=== PATIENT | male | born 1945 | race African-American/Black ===

== ENCOUNTER 2022-11-18 10:51 | Day surgery (SDC) | payer OTHER | END 2022-11-18 11:26 | LOC: FASU-ENDO 10:51 | PROVIDERS: ATTEND Internal Medicine Gastroenterology | PROC: 0DJD8ZZ Inspection of Lower Intestinal Tract, Via Natural or Artificial Opening Endoscopic (ICD-10-PCS; principal; 2022-11-18) | DX: Z53.8 Procedure and treatment not carried out for other reasons (principal); Z12.11 Encounter for screening for malignant neoplasm of colon ==

== ENCOUNTER 2022-11-27 11:40 | Inpatient (IN) | payer OTHER ==
[2022-11-27] MEDS ORDERED: HALOPERIDOL LACTATE 5 MG/ML IM ONE ×2 (12:30→12:33)
[2022-11-27 14:45] LABS: BASO % 0.5 % (0-2.0); EOS % 0.9 % (0-4.5); HEMATOCRIT 44.3 % (35.4-49); HEMOGLOBIN 14.9 GM/dL (11.7-16.9); LYMPH % 19.4 % (8-40); MCH 30.1 pg (25.7-33.7); MCHC 33.6 g/dl (32.0-35.9); MEAN CELL VOLUME 89.6 fl (80-96); NEUT % 70.2 % (42.8-82.8); PLATELET COUNT 243 10^3/uL (134-434); RBC 4.94 M/mm3 (4.00-5.60); RDW 14.3 % (11.9-15.9); WHITE BLOOD COUNT 5.7 K/mm3 (4.0-10.0)
[2022-11-27 14:50] LABS: INR 1.28 (0.83-1.09); PROTHROMBIN TIME (PATIENT) 14.8 SEC (9.7-13.0)
[2022-11-27 14:53] LABS: ACTIVATED PTT 37.7 SECONDS (25.2-36.5)
[2022-11-27 15:04] LABS: POTASSIUM 4.1 mmol/L (3.5-5.1)
[2022-11-27 15:06] LABS: CALCIUM 9.5 mg/dL (8.5-10.1)
[2022-11-27 15:07] LABS: BLOOD UREA NITROGEN 16.6 mg/dL (7-18)
[2022-11-27 15:09] LABS: CREATININE 0.7 mg/dL (0.55-1.3)
[2022-11-27 15:11] LABS: BILIRUBIN,TOTAL 0.6 mg/dL (0.2-1); TOT PROT 7.3 g/dl (6.4-8.2)
[2022-11-27] MEDS ORDERED: ACETAMINOPHEN 325 MG TABLET (FP) PO PRN (16:19)
[2022-11-27] MEDS: APIXABAN 5 MG TABLET PO SCH (22:06)
[2022-11-27] MEDS: POLYETHYLENE GLYCOL (HEALTHYLAX) 3350 17 GM PACKET PO SCH (22:06)
[2022-11-27] MEDS: FUROSEMIDE 20 MG TABLET (FP) PO SCH (22:06)
[2022-11-27] MEDS: MELATONIN 5 MG TABLETS PO SCH (22:06)
[2022-11-28 02:32] LABS: EPI CELLS 7 /uL (0-25.1); HYALINE CASTS 1 /uL (0-3.1); URINE APPEARANCE CLOUDY; URINE BACTERIA 319 /uL (0-1359); URINE BILIRUBIN NEGATIVE (NEGATIVE); URINE COLOR YELLOW; URINE GLUCOSE (UA) NEGATIVE (NEGATIVE); URINE KETONE NEGATIVE (NEGATIVE); URINE LEUK ESTERASE NEGATIVE (NEGATIVE); URINE NITRITE NEGATIVE (NEGATIVE); URINE PROTEIN NEGATIVE (NEGATIVE); URINE RBC 2067 /uL (0-23.9); URINE WBC 8 /uL (0-25.8)
[2022-11-28 08:25] LABS: BASO % 0.5 % (0-2.0); EOS % 1.6 % (0-4.5); HEMOGLOBIN 15.4 GM/dL (11.7-16.9); LYMPH % 25.2 % (8-40); MCH 30.8 pg (25.7-33.7); MCHC 33.4 g/dl (32.0-35.9); MEAN PLT VOLUME 8.7 fl (7.5-11.1); MONO % 11.3 % (3.8-10.2); NEUT % 61.4 % (42.8-82.8); PLATELET COUNT 234 10^3/uL (134-434); RDW 14.1 % (11.9-15.9); WHITE BLOOD COUNT 5.9 K/mm3 (4.0-10.0)
[2022-11-28 09:15] LABS: POTASSIUM 3.8 mmol/L (3.5-5.1)
[2022-11-28 09:17] LABS: CALCIUM 9.5 mg/dL (8.5-10.1)
[2022-11-28 09:18] LABS: ALBUMIN 3.1 g/dl (3.4-5.0)
[2022-11-28] MEDS: APIXABAN 5 MG TABLET PO SCH ×2 (09:20→22:11)
[2022-11-28] MEDS: POLYETHYLENE GLYCOL (HEALTHYLAX) 3350 17 GM PACKET PO SCH ×2 (09:20→22:11)
[2022-11-28 09:23] LABS: BILIRUBIN,TOTAL 1.1 mg/dL (0.2-1); CREATININE 0.6 mg/dL (0.55-1.3); TOT PROT 7.2 g/dl (6.4-8.2)
[2022-11-28] MEDS ORDERED: amLODIPine BESYLATE 10 MG TABLET (FP) PO SCH (10:00)
[2022-11-28] MEDS ORDERED: levETIRAcetam 500 MG/5 ML INJECTION VIAL IVPB ONE (18:10)
[2022-11-28] MEDS: MELATONIN 5 MG TABLETS PO SCH (22:11)
[2022-11-29] MEDS: APIXABAN 5 MG TABLET PO SCH ×2 (09:10→22:08)
[2022-11-29] MEDS: levETIRAcetam 500 MG/5 ML ORAL SOLUTION (UNIT-DOSE CUPS) PO SCH ×2 (09:10→22:08)
[2022-11-29] MEDS: POLYETHYLENE GLYCOL (HEALTHYLAX) 3350 17 GM PACKET PO SCH ×2 (09:10→22:09)
[2022-11-29 13:44] VITALS: BMI 23.3
[2022-11-29] MEDS: AMINO ACIDS/PROTEIN HYDROLYS 30 ML LIQUID.PKT PO SCH (17:21)
[2022-11-29] MEDS: FUROSEMIDE 20 MG TABLET (FP) PO SCH (17:21)
[2022-11-29] MEDS: MELATONIN 5 MG TABLETS PO SCH (22:08)
[2022-11-30 07:49] LABS: HEMATOCRIT 47.1 % (35.4-49); HEMOGLOBIN 15.7 GM/dL (11.7-16.9); MCH 30.5 pg (25.7-33.7); MCHC 33.4 g/dl (32.0-35.9); MEAN CELL VOLUME 91.5 fl (80-96); MEAN PLT VOLUME 9.1 fl (7.5-11.1); PLATELET COUNT 250 10^3/uL (134-434); RBC 5.15 M/mm3 (4.00-5.60); RDW 14.4 % (11.9-15.9); WHITE BLOOD COUNT 5.7 K/mm3 (4.0-10.0)
[2022-11-30 08:09] LABS: POTASSIUM 3.8 mmol/L (3.5-5.1)
[2022-11-30 08:13] LABS: CALCIUM 9.2 mg/dL (8.5-10.1)
[2022-11-30 08:14] LABS: BLOOD UREA NITROGEN 15.1 mg/dL (7-18); MAGNESIUM 2.3 mg/dL (1.8-2.4)
[2022-11-30 08:17] LABS: CREATININE 0.6 mg/dL (0.55-1.3)
[2022-11-30] MEDS: AMINO ACIDS/PROTEIN HYDROLYS 30 ML LIQUID.PKT PO SCH ×2 (10:22→17:29)
[2022-11-30] MEDS: APIXABAN 5 MG TABLET PO SCH ×2 (10:22→21:22)
[2022-11-30] MEDS: POLYETHYLENE GLYCOL (HEALTHYLAX) 3350 17 GM PACKET PO SCH ×2 (10:23→21:23)
[2022-11-30] MEDS: levETIRAcetam 500 MG/5 ML ORAL SOLUTION (UNIT-DOSE CUPS) PO SCH ×2 (10:23→21:23)
[2022-11-30] MEDS: MELATONIN 5 MG TABLETS PO SCH (21:23)
[2022-11-30 21:49] LABS: EPI CELLS 7 /uL (0-25.1); HYALINE CASTS 4 /uL (0-3.1); PH,URINE 5.5 (5.0-8.0); URINE APPEARANCE CLEAR; URINE BACTERIA 61 /uL (0-1359); URINE BILIRUBIN NEGATIVE (NEGATIVE); URINE COLOR DK YELLOW; URINE GLUCOSE (UA) NEGATIVE (NEGATIVE); URINE KETONE TRACE (NEGATIVE); URINE LEUK ESTERASE NEGATIVE (NEGATIVE); URINE NITRITE NEGATIVE (NEGATIVE); URINE PROTEIN TRACE (NEGATIVE); URINE RBC 273 /uL (0-23.9); URINE WBC 14 /uL (0-25.8)
[2022-12-01 08:17] LABS: HEMOGLOBIN 15.9 GM/dL (11.7-16.9); MCH 30.3 pg (25.7-33.7); MCHC 33.1 g/dl (32.0-35.9); MEAN CELL VOLUME 91.5 fl (80-96); MEAN PLT VOLUME 9.6 fl (7.5-11.1); PLATELET COUNT 229 10^3/uL (134-434); RBC 5.24 M/mm3 (4.00-5.60); RDW 14.2 % (11.9-15.9)
[2022-12-01 08:36] LABS: POTASSIUM 4.2 mmol/L (3.5-5.1)
[2022-12-01 08:39] LABS: CALCIUM 9.5 mg/dL (8.5-10.1)
[2022-12-01 08:40] LABS: ALBUMIN 3.2 g/dl (3.4-5.0); BLOOD UREA NITROGEN 17.8 mg/dL (7-18); MAGNESIUM 2.3 mg/dL (1.8-2.4)
[2022-12-01 08:43] LABS: CREATININE 0.6 mg/dL (0.55-1.3); PHOSPHOROUS 3.2 mg/dL (2.5-4.9)
[2022-12-01 08:44] LABS: TOT PROT 7.4 g/dl (6.4-8.2)
[2022-12-01] MEDS: levETIRAcetam 500 MG/5 ML ORAL SOLUTION (UNIT-DOSE CUPS) PO SCH ×2 (09:39→21:05)
[2022-12-01] MEDS: APIXABAN 5 MG TABLET PO SCH ×2 (09:39→21:04)
[2022-12-01] MEDS: AMINO ACIDS/PROTEIN HYDROLYS 30 ML LIQUID.PKT PO SCH ×2 (09:40→16:54)
[2022-12-01] MEDS: POLYETHYLENE GLYCOL (HEALTHYLAX) 3350 17 GM PACKET PO SCH ×2 (09:40→21:05)
[2022-12-01] MEDS: FUROSEMIDE 20 MG TABLET (FP) PO SCH (16:54)
[2022-12-01] MEDS: MELATONIN 5 MG TABLETS PO SCH (21:05)
[2022-12-02] MEDS: AMINO ACIDS/PROTEIN HYDROLYS 30 ML LIQUID.PKT PO SCH ×2 (10:08→16:51)
[2022-12-02] MEDS: levETIRAcetam 500 MG/5 ML ORAL SOLUTION (UNIT-DOSE CUPS) PO SCH (10:09)
[2022-12-02] MEDS: APIXABAN 5 MG TABLET PO SCH (10:09)
[2022-12-02] MEDS: POLYETHYLENE GLYCOL (HEALTHYLAX) 3350 17 GM PACKET PO SCH (10:09)
[2022-12-02 15:31] VITALS: RESP 18; TEMP 98.2
[2022-12-02] MEDS ORDERED: APIXABAN 2.5 MG TABLET PO SCH (16:38)
[2022-12-02 19:01] VITALS: BP 114/68; PULSE 65
== END 2022-12-02 19:53 | DRG 53 ==
LOC: JER 11:40 → JERBED 15:47 → J4W 19:27 → OBSVTOIN 11-29 17:51
PROVIDERS: ADMIT Internal Medicine; ATTEND Internal Medicine
DX: R56.9 Unspecified convulsions (principal); G62.9 Polyneuropathy, unspecified; F03.90 Unspecified dementia, unspecified severity, without behavioral disturbance, psychotic disturbance, mood disturbance, and anxiety; E04.1 Nontoxic single thyroid nodule; I73.9 Peripheral vascular disease, unspecified; I87.2 Venous insufficiency (chronic) (peripheral); M89.9 Disorder of bone, unspecified; R31.29 Other microscopic hematuria; R41.0 Disorientation, unspecified
CPT/HCPCS: 36415; 70450-TC; 70551-TC; 71045-TC-FY; 72125-TC; 76775-TC; 77074-TC-FY; 80048; 80053; 81003; 82607; 82746; 82962; 83036; 83735; 84100; 84443; 84484; 85025; 85027; 85610; 85730; 86780; 86850; 86900; 86901; 87081; 87086; 93005; 93010; 97116-GP; 97162-GP; 99285-25; G0378

== ENCOUNTER 2022-12-08 13:13 | Inpatient (IN) | payer OTHER ==
[2022-12-08] MEDS ORDERED: LACTATED RINGERS SOLUTION 1000 ML INFUS.BAG IV ONE (14:50)
[2022-12-08 15:12] LABS: INR 1.68 (0.83-1.09); PROTHROMBIN TIME (PATIENT) 19.4 SEC (9.7-13.0)
[2022-12-08 15:14] LABS: ACTIVATED PTT 33.1 SECONDS (25.2-36.5)
[2022-12-08 15:29] LABS: CHLORIDE 112 mmol/L (98-107); POTASSIUM 3.5 mmol/L (3.5-5.1); SODIUM 146 mmol/L (136-145)
[2022-12-08 15:30] LABS: CALCIUM 9.3 mg/dL (8.5-10.1)
[2022-12-08 15:31] LABS: ANION GAP 6 MMOL/L (8-16); BLOOD UREA NITROGEN 12.3 mg/dL (7-18); CO2 28 mmol/L (21-32); GLUCOSE,RANDOM 128 mg/dL (74-106)
[2022-12-08 15:34] LABS: CREATININE 0.6 mg/dL (0.55-1.3); SGOT/AST 35 U/L (15-37); SGPT/ALT 21 U/L (13-61)
[2022-12-08 15:36] LABS: BILIRUBIN,TOTAL 1.2 mg/dL (0.2-1); TOT PROT 6.5 g/dl (6.4-8.2)
[2022-12-08 15:37] LABS: ALK PHOS 121 U/L (45-117)
[2022-12-08 15:39] LABS: ALBUMIN 2.1 g/dl (3.4-5.0)
[2022-12-08 15:53] LABS: VENOUS BASE EXCESS 3.3 mmol/L (-2-2); VENOUS O2 SATURATION 97.7 % (70-80); VENOUS PCO2 37.5 mmHg (38-52); VENOUS PH 7.472 (7.310-7.410)
[2022-12-08 16:21] LABS: EPI CELLS >36 /uL (0-25.1); HYALINE CASTS 2 /uL (0-3.1); PH,URINE 5.5 (5.0-8.0); URINE APPEARANCE CLOUDY; URINE BACTERIA 1 /uL (0-1359); URINE BILIRUBIN 1+ (NEGATIVE); URINE COLOR DK YELLOW; URINE GLUCOSE (UA) NEGATIVE (NEGATIVE); URINE KETONE NEGATIVE (NEGATIVE); URINE LEUK ESTERASE 1+ (NEGATIVE); URINE NITRITE NEGATIVE (NEGATIVE); URINE PROTEIN 2+ (NEGATIVE); URINE RBC 483 /uL (0-23.9); URINE WBC 132 /uL (0-25.8)
[2022-12-08 17:18] LABS: HEMATOCRIT 40.9 % (35.4-49); HEMOGLOBIN 13.7 GM/dL (11.7-16.9); LYMPH % 7.1 % (8-40); MCH 29.9 pg (25.7-33.7); MCHC 33.5 g/dl (32.0-35.9); MEAN CELL VOLUME 89.2 fl (80-96); MEAN PLT VOLUME 8.5 fl (7.5-11.1); MONO % 13.6 % (3.8-10.2); NEUT % 79.3 % (42.8-82.8); PLATELET COUNT 204 10^3/uL (134-434); RBC 4.58 M/mm3 (4.00-5.60); RDW 14.6 % (11.9-15.9); WHITE BLOOD COUNT 15.6 K/mm3 (4.0-10.0)
[2022-12-08] MEDS ORDERED: LACTATED RINGERS SOLUTION 1,000 ML/1,000 ML INFUS.BAG IV STA (17:50)
[2022-12-08 17:52] LABS: CHLORIDE 111 mmol/L (98-107); SODIUM 147 mmol/L (136-145)
[2022-12-08 17:56] LABS: BLOOD UREA NITROGEN 12.9 mg/dL (7-18); CO2 28 mmol/L (21-32); GLUCOSE,RANDOM 142 mg/dL (74-106)
[2022-12-08 17:59] LABS: CREATININE 0.5 mg/dL (0.55-1.3)
[2022-12-08 18:08] LABS: ANION GAP 8 MMOL/L (8-16); POTASSIUM 2.6 mmol/L (3.5-5.1)
[2022-12-08] MEDS ORDERED: KCL 10 MEQ IVPB 10 MEQ/100 ML INFUS.BAG IVPB ONE (18:25)
[2022-12-08] MEDS: KCL 10 MEQ IVPB 10 MEQ/100 ML INFUS.BAG IVPB SCH ×3 (18:43→22:39)
[2022-12-08] MEDS ORDERED: KCL 10 MEQ IVPB 20 MEQ/200 ML INFUS.BAG IVPB ONE (20:47)
[2022-12-09] MEDS: KCL 10 MEQ IVPB 10 MEQ/100 ML INFUS.BAG IVPB SCH ×8 (00:19→17:03)
[2022-12-09] MEDS ORDERED: VANCOMYCIN 1 GM/200 ML PREMIX BAG (RESTRICTED TO ID ONLY) IVPB SCH ×2 (01:00→10:00)
[2022-12-09] MEDS: PIPERACILLIN/TAZOB 3.375 GM 3.375 GM in DEXTROSE 5%-WATER - 50 ML IVPB SCH ×3 (01:54→18:04)
[2022-12-09] MEDS: ENOXAPARIN NA (PORCINE) 40 MG/0.4 ML DISP.SYRIN SQ SCH (09:57)
[2022-12-09] MEDS: levETIRAcetam 500 MG/5 ML INJECTION VIAL IVPB SCH ×2 (09:57→21:21)
[2022-12-09] MEDS ORDERED: ONDANSETRON 4 MG/2 ML VIAL IVPUSH PRN (10:23)
[2022-12-09] MEDS ORDERED: ACETAMINOPHEN 1000 MG/100 ML BAG IVPB PRN (10:25)
[2022-12-09 11:54] LABS: HEMATOCRIT 40.9 % (35.4-49); HEMOGLOBIN 13.9 GM/dL (11.7-16.9); MCH 30.2 pg (25.7-33.7); MCHC 33.9 g/dl (32.0-35.9); MEAN CELL VOLUME 88.9 fl (80-96); MEAN PLT VOLUME 8.3 fl (7.5-11.1); PLATELET COUNT 224 10^3/uL (134-434); RBC 4.59 M/mm3 (4.00-5.60)
[2022-12-09 12:33] LABS: POTASSIUM 3.2 mmol/L (3.5-5.1)
[2022-12-09 12:36] LABS: CALCIUM 8.9 mg/dL (8.5-10.1)
[2022-12-09 12:37] LABS: BLOOD UREA NITROGEN 10.3 mg/dL (7-18); MAGNESIUM 2.2 mg/dL (1.8-2.4)
[2022-12-09] MEDS: D5-1/2NS+20 MEQ KCL - 20 MEQ/1,000 ML INFUS.BAG IV SCH (12:38)
[2022-12-09] MEDS: NYSTATIN 100,000 UNIT/GM TOPICAL CREAM 15 GM TUBE TP SCH ×2 (12:38→21:35)
[2022-12-09 12:40] LABS: CREATININE 0.6 mg/dL (0.55-1.3); PHOSPHOROUS 1.9 mg/dL (2.5-4.9)
[2022-12-10] MEDS ORDERED: VANCOMYCIN 1 GM/200 ML PREMIX BAG (RESTRICTED TO ID ONLY) IVPB SCH (01:00)
[2022-12-10] MEDS: PIPERACILLIN/TAZOB 3.375 GM 3.375 GM in DEXTROSE 5%-WATER - 50 ML IVPB SCH ×3 (01:46→17:59)
[2022-12-10 08:18] LABS: BASO % 0.1 % (0-2.0); EOS % 0.5 % (0-4.5); HEMATOCRIT 38.3 % (35.4-49); HEMOGLOBIN 12.6 GM/dL (11.7-16.9); LYMPH % 7.7 % (8-40); MCH 29.9 pg (25.7-33.7); MCHC 32.9 g/dl (32.0-35.9); MEAN CELL VOLUME 90.8 fl (80-96); MEAN PLT VOLUME 8.7 fl (7.5-11.1); MONO % 12.7 % (3.8-10.2); PLATELET COUNT 227 10^3/uL (134-434); RBC 4.22 M/mm3 (4.00-5.60); RDW 14.8 % (11.9-15.9); WHITE BLOOD COUNT 13.1 K/mm3 (4.0-10.0)
[2022-12-10 09:08] LABS: CHLORIDE 109 mmol/L (98-107); SODIUM 147 mmol/L (136-145)
[2022-12-10] MEDS: D5-1/2NS+20 MEQ KCL - 20 MEQ/1,000 ML INFUS.BAG IV SCH (09:15)
[2022-12-10 09:17] LABS: CALCIUM 8.6 mg/dL (8.5-10.1)
[2022-12-10 09:18] LABS: ALBUMIN 1.9 g/dl (3.4-5.0); BLOOD UREA NITROGEN 7.9 mg/dL (7-18); CO2 30 mmol/L (21-32); CREATININE 0.5 mg/dL (0.55-1.3); GLUCOSE,RANDOM 147 mg/dL (74-106)
[2022-12-10 09:19] LABS: ALK PHOS 96 U/L (45-117); PHOSPHOROUS 1.3 mg/dL (2.5-4.9)
[2022-12-10 09:20] LABS: SGPT/ALT 15 U/L (13-61)
[2022-12-10 09:21] LABS: BILIRUBIN,TOTAL 0.7 mg/dL (0.2-1); SGOT/AST 19 U/L (15-37); TOT PROT 5.5 g/dl (6.4-8.2)
[2022-12-10 09:25] LABS: ANION GAP 8 MMOL/L (8-16); POTASSIUM 2.9 mmol/L (3.5-5.1)
[2022-12-10] MEDS: levETIRAcetam 500 MG/5 ML INJECTION VIAL IVPB SCH ×2 (10:24→21:31)
[2022-12-10] MEDS: NYSTATIN 100,000 UNIT/GM TOPICAL CREAM 15 GM TUBE TP SCH ×2 (10:25→21:32)
[2022-12-10] MEDS: ENOXAPARIN NA (PORCINE) 40 MG/0.4 ML DISP.SYRIN SQ SCH (10:25)
[2022-12-10] MEDS ORDERED: POTASSIUM CHLORIDE TABS 20 MEQ TABLET.ER (FP) PO ONE (10:30)
[2022-12-10 13:13] VITALS: BMI 22.1
[2022-12-10] MEDS: AMINO ACIDS/PROTEIN HYDROLYS 30 ML LIQUID.PKT PO SCH (17:59)
[2022-12-11] MEDS: PIPERACILLIN/TAZOB 3.375 GM 3.375 GM in DEXTROSE 5%-WATER - 50 ML IVPB SCH ×3 (04:16→17:28)
[2022-12-11] MEDS: KCL 10 MEQ IVPB 10 MEQ/100 ML INFUS.BAG IVPB SCH ×2 (05:05→06:05)
[2022-12-11] MEDS: D5-1/2NS+20 MEQ KCL - 20 MEQ/1,000 ML INFUS.BAG IV SCH (10:38)
[2022-12-11] MEDS: NYSTATIN 100,000 UNIT/GM TOPICAL CREAM 15 GM TUBE TP SCH ×2 (10:46→22:36)
[2022-12-11] MEDS: AMINO ACIDS/PROTEIN HYDROLYS 30 ML LIQUID.PKT PO SCH ×2 (10:46→16:46)
[2022-12-11] MEDS ORDERED: FENTANYL CITRATE/PF 50 MCG/ML VIAL ONE ×3 (11:40→11:54)
[2022-12-11] MEDS ORDERED: FENTANYL CITRATE/PF 50 MCG/ML VIAL IVPUSH ONE ×3 (11:44→11:55)
[2022-12-11] MEDS: levETIRAcetam 500 MG/5 ML INJECTION VIAL IVPB SCH ×2 (14:26→22:34)
[2022-12-11 16:00] LABS: HEMATOCRIT 36.5 % (35.4-49); HEMOGLOBIN 12.1 GM/dL (11.7-16.9); MCH 30.1 pg (25.7-33.7); MCHC 33.3 g/dl (32.0-35.9); MEAN CELL VOLUME 90.5 fl (80-96); MEAN PLT VOLUME 8.3 fl (7.5-11.1); PLATELET COUNT 248 10^3/uL (134-434); RBC 4.03 M/mm3 (4.00-5.60); RDW 14.6 % (11.9-15.9); WHITE BLOOD COUNT 13.5 K/mm3 (4.0-10.0)
[2022-12-11 16:19] LABS: CHLORIDE 108 mmol/L (98-107); SODIUM 144 mmol/L (136-145)
[2022-12-11 16:21] LABS: CALCIUM 8.1 mg/dL (8.5-10.1)
[2022-12-11 16:22] LABS: ALBUMIN 1.8 g/dl (3.4-5.0); BLOOD UREA NITROGEN 4.5 mg/dL (7-18); CO2 31 mmol/L (21-32); GLUCOSE,RANDOM 134 mg/dL (74-106)
[2022-12-11 16:25] LABS: CREATININE 0.5 mg/dL (0.55-1.3); PHOSPHOROUS 1.4 mg/dL (2.5-4.9); SGOT/AST 21 U/L (15-37); SGPT/ALT 16 U/L (13-61)
[2022-12-11 16:26] LABS: BILIRUBIN,TOTAL 0.6 mg/dL (0.2-1)
[2022-12-11 16:27] LABS: TOT PROT 5.5 g/dl (6.4-8.2)
[2022-12-11 16:28] LABS: ALK PHOS 95 U/L (45-117)
[2022-12-11 16:34] LABS: ANION GAP 5 MMOL/L (8-16); POTASSIUM 2.8 mmol/L (3.5-5.1)
[2022-12-11] MEDS ORDERED: POTASSIUM CHLORIDE ORAL LIQUID 20 MEQ/15 ML PO ONE (16:52)
[2022-12-11] MEDS ORDERED: POTASSIUM PHOSPHATE 30 MM in SODIUM CHLORIDE 500 ML IVPB ONE (16:56)
[2022-12-11] MEDS ORDERED: POTASSIUM CHLORIDE TABS 10 MEQ TABLET.ER (FP) PO ONE ×2 (20:00→22:45)
[2022-12-11] MEDS: APIXABAN 5 MG TABLET PO SCH (22:34)
[2022-12-12 00:08] LABS: CHLORIDE 113 mmol/L (98-107); SODIUM 147 mmol/L (136-145)
[2022-12-12 00:10] LABS: BLOOD UREA NITROGEN 5.1 mg/dL (7-18); CALCIUM 7.9 mg/dL (8.5-10.1); CO2 29 mmol/L (21-32); GLUCOSE,RANDOM 101 mg/dL (74-106)
[2022-12-12 00:13] LABS: CREATININE 0.4 mg/dL (0.55-1.3)
[2022-12-12 00:29] LABS: ANION GAP 5 MMOL/L (8-16); POTASSIUM 2.8 mmol/L (3.5-5.1)
[2022-12-12] MEDS: PIPERACILLIN/TAZOB 3.375 GM 3.375 GM in DEXTROSE 5%-WATER - 50 ML IVPB SCH ×3 (01:56→18:20)
[2022-12-12] MEDS: KCL 10 MEQ IVPB 10 MEQ/100 ML INFUS.BAG IVPB SCH ×5 (04:04→12:28)
[2022-12-12 06:44] LABS: BASO % 0.3 % (0-2.0); HEMATOCRIT 34.2 % (35.4-49); HEMOGLOBIN 11.4 GM/dL (11.7-16.9); LYMPH % 13.5 % (8-40); MCHC 33.4 g/dl (32.0-35.9); MEAN CELL VOLUME 89.8 fl (80-96); MONO % 8.4 % (3.8-10.2); NEUT % 75.8 % (42.8-82.8); PLATELET COUNT 263 10^3/uL (134-434); RBC 3.81 M/mm3 (4.00-5.60); RDW 14.6 % (11.9-15.9); WHITE BLOOD COUNT 8.4 K/mm3 (4.0-10.0)
[2022-12-12 07:12] LABS: POTASSIUM 3.2 mmol/L (3.5-5.1)
[2022-12-12 07:14] LABS: ALBUMIN 1.6 g/dl (3.4-5.0); BLOOD UREA NITROGEN 5.5 mg/dL (7-18); CALCIUM 7.8 mg/dL (8.5-10.1); MAGNESIUM 1.9 mg/dL (1.8-2.4)
[2022-12-12 07:17] LABS: CREATININE 0.4 mg/dL (0.55-1.3); PHOSPHOROUS 3.5 mg/dL (2.5-4.9)
[2022-12-12 07:19] LABS: BILIRUBIN,TOTAL 0.6 mg/dL (0.2-1); TOT PROT 5.2 g/dl (6.4-8.2)
[2022-12-12] MEDS: APIXABAN 5 MG TABLET PO SCH (09:20)
[2022-12-12] MEDS: AMINO ACIDS/PROTEIN HYDROLYS 30 ML LIQUID.PKT PO SCH ×2 (09:20→18:21)
[2022-12-12] MEDS: D5-1/2NS+20 MEQ KCL - 20 MEQ/1,000 ML INFUS.BAG IV SCH (10:39)
[2022-12-12] MEDS ORDERED: DEXTROSE 5%-WATER - 1,000 ML with POTASSIUM CHLORIDE 40 MEQ IV SCH (11:30)
[2022-12-12] MEDS: NYSTATIN 100,000 UNIT/GM TOPICAL CREAM 15 GM TUBE TP SCH ×2 (11:47→21:57)
[2022-12-12] MEDS: levETIRAcetam 500 MG/5 ML INJECTION VIAL IVPB SCH ×2 (11:47→21:58)
[2022-12-12] MEDS: ENOXAPARIN NA (PORCINE) 80 MG/0.8 ML DISP.SYRIN SQ SCH ×2 (12:19→21:56)
[2022-12-12] MEDS: POTASSIUM CHLORIDE 40 MEQ in DEXTROSE 5%-WATER - 1,000 ML IV SCH (12:31)
[2022-12-12 20:49] LABS: GLUCOSE,RANDOM 132 mg/dL (74-106)
[2022-12-12 20:50] LABS: ALBUMIN 1.7 g/dl (3.4-5.0); BLOOD UREA NITROGEN 3.9 mg/dL (7-18); CHLORIDE 110 mmol/L (98-107); CO2 29 mmol/L (21-32); SODIUM 144 mmol/L (136-145)
[2022-12-12 20:53] LABS: CREATININE 0.4 mg/dL (0.55-1.3); SGOT/AST 42 U/L (15-37); SGPT/ALT 24 U/L (13-61)
[2022-12-12 20:54] LABS: BILIRUBIN,TOTAL 0.5 mg/dL (0.2-1); TOT PROT 5.4 g/dl (6.4-8.2)
[2022-12-12 20:55] LABS: ALK PHOS 84 U/L (45-117)
[2022-12-12 21:34] LABS: ANION GAP 6 MMOL/L (8-16); POTASSIUM 2.9 mmol/L (3.5-5.1)
[2022-12-13] MEDS: PIPERACILLIN/TAZOB 3.375 GM 3.375 GM in DEXTROSE 5%-WATER - 50 ML IVPB SCH ×3 (04:15→18:52)
[2022-12-13] MEDS: AMINO ACIDS/PROTEIN HYDROLYS 30 ML LIQUID.PKT PO SCH ×2 (08:21→18:47)
[2022-12-13] MEDS: KCL 10 MEQ IVPB 10 MEQ/100 ML INFUS.BAG IVPB SCH ×6 (08:21→18:48)
[2022-12-13 08:33] LABS: BASO % 0.2 % (0-2.0); EOS % 2.7 % (0-4.5); HEMATOCRIT 33.9 % (35.4-49); HEMOGLOBIN 11.7 GM/dL (11.7-16.9); LYMPH % 13.5 % (8-40); MCH 30.1 pg (25.7-33.7); MCHC 34.5 g/dl (32.0-35.9); MEAN CELL VOLUME 87.4 fl (80-96); MEAN PLT VOLUME 7.7 fl (7.5-11.1); MONO % 8.4 % (3.8-10.2); NEUT % 75.2 % (42.8-82.8); PLATELET COUNT 303 10^3/uL (134-434); RBC 3.88 M/mm3 (4.00-5.60); RDW 14.6 % (11.9-15.9); WHITE BLOOD COUNT 7.6 K/mm3 (4.0-10.0)
[2022-12-13 08:55] LABS: CHLORIDE 106 mmol/L (98-107); SODIUM 140 mmol/L (136-145)
[2022-12-13 09:01] LABS: ALBUMIN 1.7 g/dl (3.4-5.0); ANION GAP 5 MMOL/L (8-16); CALCIUM 7.9 mg/dL (8.5-10.1); CO2 28 mmol/L (21-32)
[2022-12-13 09:02] LABS: GLUCOSE,RANDOM 124 mg/dL (74-106); MAGNESIUM 1.9 mg/dL (1.8-2.4)
[2022-12-13 09:04] LABS: CREATININE 0.4 mg/dL (0.55-1.3); SGOT/AST 52 U/L (15-37)
[2022-12-13 09:05] LABS: SGPT/ALT 31 U/L (13-61)
[2022-12-13 09:06] LABS: BILIRUBIN,TOTAL 0.5 mg/dL (0.2-1); TOT PROT 5.5 g/dl (6.4-8.2)
[2022-12-13 09:07] LABS: ALK PHOS 84 U/L (45-117)
[2022-12-13] MEDS: ENOXAPARIN NA (PORCINE) 80 MG/0.8 ML DISP.SYRIN SQ SCH ×2 (10:36→21:31)
[2022-12-13] MEDS: levETIRAcetam 500 MG/5 ML INJECTION VIAL IVPB SCH ×2 (10:37→21:31)
[2022-12-13] MEDS: NYSTATIN 100,000 UNIT/GM TOPICAL CREAM 15 GM TUBE TP SCH ×2 (10:37→21:32)
[2022-12-13] MEDS ORDERED: POTASSIUM CHLORIDE ORAL LIQUID 20 MEQ/15 ML PO ONE (15:26)
[2022-12-13] MEDS: POTASSIUM CHLORIDE 40 MEQ in DEXTROSE 5%-WATER - 1,000 ML IV SCH (15:59)
[2022-12-14] MEDS: POTASSIUM CHLORIDE 40 MEQ in DEXTROSE 5%-WATER - 1,000 ML IV SCH ×3 (02:05→14:32)
[2022-12-14] MEDS: PIPERACILLIN/TAZOB 3.375 GM 3.375 GM in DEXTROSE 5%-WATER - 50 ML IVPB SCH ×2 (02:20→10:05)
[2022-12-14 08:15] LABS: CHLORIDE 110 mmol/L (98-107); POTASSIUM 3.7 mmol/L (3.5-5.1); SODIUM 140 mmol/L (136-145)
[2022-12-14 08:16] LABS: HEMATOCRIT 36.1 % (35.4-49); HEMOGLOBIN 12.2 GM/dL (11.7-16.9); MCH 29.8 pg (25.7-33.7); MCHC 33.7 g/dl (32.0-35.9); MEAN CELL VOLUME 88.3 fl (80-96); MEAN PLT VOLUME 7.6 fl (7.5-11.1); PLATELET COUNT 331 10^3/uL (134-434); RBC 4.09 M/mm3 (4.00-5.60); WHITE BLOOD COUNT 6.5 K/mm3 (4.0-10.0)
[2022-12-14 08:18] LABS: ALBUMIN 1.8 g/dl (3.4-5.0); CALCIUM 8.5 mg/dL (8.5-10.1); MAGNESIUM 1.9 mg/dL (1.8-2.4)
[2022-12-14 08:19] LABS: GLUCOSE,RANDOM 131 mg/dL (74-106)
[2022-12-14 08:20] LABS: ANION GAP 5 MMOL/L (8-16); CO2 26 mmol/L (21-32)
[2022-12-14 08:21] LABS: CREATININE 0.4 mg/dL (0.55-1.3); PHOSPHOROUS 2.6 mg/dL (2.5-4.9)
[2022-12-14 08:22] LABS: SGOT/AST 74 U/L (15-37)
[2022-12-14 08:23] LABS: BILIRUBIN,TOTAL 0.4 mg/dL (0.2-1); TOT PROT 5.8 g/dl (6.4-8.2)
[2022-12-14 08:24] LABS: ALK PHOS 86 U/L (45-117); SGPT/ALT 44 U/L (13-61)
[2022-12-14 08:26] LABS: BLOOD UREA NITROGEN 1.4 mg/dL (7-18)
[2022-12-14] MEDS: levETIRAcetam 500 MG/5 ML INJECTION VIAL IVPB SCH (10:06)
[2022-12-14] MEDS: AMINO ACIDS/PROTEIN HYDROLYS 30 ML LIQUID.PKT PO SCH ×2 (10:06→17:45)
[2022-12-14] MEDS: ENOXAPARIN NA (PORCINE) 80 MG/0.8 ML DISP.SYRIN SQ SCH (10:06)
[2022-12-14] MEDS: NYSTATIN 100,000 UNIT/GM TOPICAL CREAM 15 GM TUBE TP SCH ×2 (10:08→22:04)
[2022-12-14 15:09] LABS: TOTAL PROTEIN, URINE 75.5 mg/dL (Not Estab.)
[2022-12-14] MEDS ORDERED: FUROSEMIDE 20 MG TABLET (FP) PO SCH (15:15)
[2022-12-14] MEDS: ACETAMINOPHEN 325 MG TABLET (FP) PO SCH (17:45)
[2022-12-14] MEDS ORDERED: POLYETHYLENE GLYCOL (HEALTHYLAX) 3350 17 GM PACKET PO SCH (22:00)
[2022-12-14] MEDS ORDERED: MELATONIN 5 MG TABLETS PO SCH (22:00)
[2022-12-14] MEDS: APIXABAN 5 MG TABLET PO SCH (22:02)
[2022-12-14] MEDS: levETIRAcetam 500 MG/5 ML ORAL SOLUTION (UNIT-DOSE CUPS) PO SCH (22:02)
[2022-12-15] MEDS: ACETAMINOPHEN 325 MG TABLET (FP) PO SCH ×3 (00:46→11:40)
[2022-12-15 09:47] LABS: BASO % 0.7 % (0-2.0); EOS % 1.9 % (0-4.5); HEMATOCRIT 37.4 % (35.4-49); HEMOGLOBIN 12.6 GM/dL (11.7-16.9); LYMPH % 18.1 % (8-40); MCH 30.3 pg (25.7-33.7); MCHC 33.6 g/dl (32.0-35.9); MEAN CELL VOLUME 90.2 fl (80-96); MEAN PLT VOLUME 7.9 fl (7.5-11.1); MONO % 9.2 % (3.8-10.2); NEUT % 70.1 % (42.8-82.8); PLATELET COUNT 388 10^3/uL (134-434); RBC 4.14 M/mm3 (4.00-5.60); RDW 14.7 % (11.9-15.9); WHITE BLOOD COUNT 6.1 K/mm3 (4.0-10.0)
[2022-12-15 09:58] LABS: BLOOD UREA NITROGEN 4.9 mg/dL (7-18); CALCIUM 8.6 mg/dL (8.5-10.1); MAGNESIUM 1.9 mg/dL (1.8-2.4)
[2022-12-15 10:01] LABS: PHOSPHOROUS 3.1 mg/dL (2.5-4.9)
[2022-12-15 10:02] LABS: CREATININE 0.4 mg/dL (0.55-1.3)
[2022-12-15 10:03] LABS: BILIRUBIN,TOTAL 0.4 mg/dL (0.2-1); TOT PROT 6.4 g/dl (6.4-8.2)
[2022-12-15] MEDS: AMINO ACIDS/PROTEIN HYDROLYS 30 ML LIQUID.PKT PO SCH ×3 (10:36→11:40)
[2022-12-15] MEDS: amLODIPine BESYLATE 10 MG TABLET (FP) PO SCH ×2 (10:36→10:44)
[2022-12-15] MEDS: APIXABAN 5 MG TABLET PO SCH ×2 (10:36→10:43)
[2022-12-15] MEDS: levETIRAcetam 500 MG/5 ML ORAL SOLUTION (UNIT-DOSE CUPS) PO SCH ×2 (10:36→10:43)
[2022-12-15] MEDS: NYSTATIN 100,000 UNIT/GM TOPICAL CREAM 15 GM TUBE TP SCH (10:37)
[2022-12-15 16:18] VITALS: BP 113/63; PULSE 59; RESP 18; TEMP 97.9
[2022-12-15 18:07] LABS: FREE KAPPA,SERUM 47.1 mg/L (3.3-19.4)
== END 2022-12-15 18:12 | DRG 261 ==
LOC: JER 13:13 → JERBED 21:32 → J4W 12-09 00:07 → OBSVTOIN 12-09 00:25 → J5S 12-14 20:03
PROVIDERS: ADMIT Internal Medicine; ATTEND Internal Medicine
PROC: 0F9430Z Drainage of Gallbladder with Drainage Device, Percutaneous Approach (ICD-10-PCS; principal; 2022-12-11)
DX: K81.0 Acute cholecystitis (principal); E87.0 Hyperosmolality and hypernatremia; E86.0 Dehydration; K56.7 Ileus, unspecified; F02.80 Dementia in other diseases classified elsewhere, unspecified severity, without behavioral disturbance, psychotic disturbance, mood disturbance, and anxiety; G30.9 Alzheimer's disease, unspecified; E87.6 Hypokalemia; D72.829 Elevated white blood cell count, unspecified; B35.3 Tinea pedis
CPT/HCPCS: 0241U-QW; 36415; 47490; 70450-TC; 71045-TC-FY; 74018-TC-FY; 74019-TC-FY; 74177-TC; 76705-TC; 78226-TC; 80048; 80053; 81003; 82550; 82553; 82728; 82803; 82962; 83605; 83735; 83883; 84100; 84153; 84155; 84156; 84157; 84165; 84484; 85025; 85027; 85610; 85730; 86850; 86900; 86901; 87040; 87070; 87075; 87086; 87102; 87116; 87205; 87206; 87210; 87635; 93005; 93010; 97162-GP; 99285-25; A4358; A9537; C1729; C1769; G0378; Q9967

== ENCOUNTER 2023-01-09 00:57 | Inpatient (IN) | payer OTHER ==
[2023-01-09 01:47] LABS: BASO % 0.7 % (0-2.0); EOS % 4.1 % (0-4.5); HEMATOCRIT 40.1 % (35.4-49); HEMOGLOBIN 13.7 GM/dL (11.7-16.9); LYMPH % 24.7 % (8-40); MCH 30.4 pg (25.7-33.7); MCHC 34.2 g/dl (32.0-35.9); MEAN CELL VOLUME 88.9 fl (80-96); MEAN PLT VOLUME 7.7 fl (7.5-11.1); MONO % 12.5 % (3.8-10.2); PLATELET COUNT 248 10^3/uL (134-434); RBC 4.51 M/mm3 (4.00-5.60); RDW 15.6 % (11.9-15.9); WHITE BLOOD COUNT 7.8 K/mm3 (4.0-10.0)
[2023-01-09 02:00] LABS: INR 1.39 (0.83-1.09); PROTHROMBIN TIME (PATIENT) 16.1 SEC (9.7-13.0)
[2023-01-09 02:03] LABS: ACTIVATED PTT 37.9 SECONDS (25.2-36.5)
[2023-01-09 02:06] LABS: POTASSIUM 4.5 mmol/L (3.5-5.1)
[2023-01-09 02:08] LABS: CALCIUM 9.1 mg/dL (8.5-10.1)
[2023-01-09 02:09] LABS: ALBUMIN 2.8 g/dl (3.4-5.0); BLOOD UREA NITROGEN 18.9 mg/dL (7-18)
[2023-01-09 02:11] LABS: CREATININE 0.6 mg/dL (0.55-1.3)
[2023-01-09 02:13] LABS: TOT PROT 7.5 g/dl (6.4-8.2)
[2023-01-09 02:18] LABS: BILIRUBIN,TOTAL 0.4 mg/dL (0.2-1)
[2023-01-09] MEDS ORDERED: APIXABAN 5 MG TABLET PO SCH (10:00)
[2023-01-09] MEDS ORDERED: levETIRAcetam 500 MG/5 ML ORAL SOLUTION (UNIT-DOSE CUPS) PO SCH (10:00)
[2023-01-09] MEDS: ACETAMINOPHEN 325 MG TABLET (FP) PO SCH ×3 (11:47→18:17)
[2023-01-09] MEDS: POLYETHYLENE GLYCOL (HEALTHYLAX) 3350 17 GM PACKET PO SCH ×2 (11:49→22:44)
[2023-01-09] MEDS: amLODIPine BESYLATE 10 MG TABLET (FP) PO SCH (11:50)
[2023-01-09] MEDS: FUROSEMIDE 20 MG TABLET (FP) PO SCH (11:50)
[2023-01-09] MEDS: DOCUSATE SODIUM 100 MG CAPSULE (FP) PO SCH (11:50)
[2023-01-09] MEDS: ONDANSETRON 4 MG TABLET PO SCH ×4 (11:51→22:44)
[2023-01-09 16:50] VITALS: BMI 25.0
[2023-01-09] MEDS: MELATONIN 5 MG TABLETS PO SCH (22:44)
[2023-01-09] MEDS: levETIRAcetam 500 MG/5 ML ORAL SOLUTION (UNIT-DOSE CUPS) PO SCH (22:44)
[2023-01-10] MEDS: ACETAMINOPHEN 325 MG TABLET (FP) PO SCH ×4 (00:27→17:22)
[2023-01-10 09:56] LABS: BASO % 0.7 % (0-2.0); EOS % 1.8 % (0-4.5); HEMATOCRIT 39.5 % (35.4-49); HEMOGLOBIN 13.2 GM/dL (11.7-16.9); LYMPH % 19.1 % (8-40); MCH 30.7 pg (25.7-33.7); MCHC 33.3 g/dl (32.0-35.9); MEAN CELL VOLUME 91.9 fl (80-96); MEAN PLT VOLUME 8.2 fl (7.5-11.1); MONO % 8.3 % (3.8-10.2); NEUT % 70.1 % (42.8-82.8); PLATELET COUNT 217 10^3/uL (134-434); RDW 15.8 % (11.9-15.9)
[2023-01-10 10:12] LABS: POTASSIUM 4.1 mmol/L (3.5-5.1)
[2023-01-10 10:15] LABS: ALBUMIN 2.8 g/dl (3.4-5.0); BLOOD UREA NITROGEN 19.3 mg/dL (7-18); CALCIUM 9.4 mg/dL (8.5-10.1)
[2023-01-10 10:19] LABS: CREATININE 0.7 mg/dL (0.55-1.3)
[2023-01-10 10:21] LABS: TOT PROT 7.4 g/dl (6.4-8.2)
[2023-01-10] MEDS: levETIRAcetam 500 MG/5 ML ORAL SOLUTION (UNIT-DOSE CUPS) PO SCH ×2 (10:25→22:02)
[2023-01-10] MEDS: POLYETHYLENE GLYCOL (HEALTHYLAX) 3350 17 GM PACKET PO SCH ×2 (10:25→22:02)
[2023-01-10] MEDS: DOCUSATE SODIUM 100 MG CAPSULE (FP) PO SCH (10:25)
[2023-01-10] MEDS: amLODIPine BESYLATE 10 MG TABLET (FP) PO SCH (10:25)
[2023-01-10] MEDS: ONDANSETRON 4 MG TABLET PO SCH ×4 (10:25→22:02)
[2023-01-10] MEDS: DEXTROSE 5%-WATER - 1,000 ML IV SCH (17:41)
[2023-01-10] MEDS: MELATONIN 5 MG TABLETS PO SCH (22:02)
[2023-01-11] MEDS: ACETAMINOPHEN 325 MG TABLET (FP) PO SCH ×4 (01:28→17:17)
[2023-01-11] MEDS: POLYETHYLENE GLYCOL (HEALTHYLAX) 3350 17 GM PACKET PO SCH (10:09)
[2023-01-11] MEDS: ONDANSETRON 4 MG TABLET PO SCH ×3 (10:09→17:22)
[2023-01-11] MEDS: levETIRAcetam 500 MG/5 ML ORAL SOLUTION (UNIT-DOSE CUPS) PO SCH (10:10)
[2023-01-11] MEDS: FUROSEMIDE 20 MG TABLET (FP) PO SCH (10:10)
[2023-01-11] MEDS: DOCUSATE SODIUM 100 MG CAPSULE (FP) PO SCH (10:10)
[2023-01-11] MEDS: amLODIPine BESYLATE 10 MG TABLET (FP) PO SCH (10:10)
[2023-01-11 13:04] LABS: POTASSIUM 3.7 mmol/L (3.5-5.1)
[2023-01-11 13:10] LABS: BLOOD UREA NITROGEN 16.3 mg/dL (7-18)
[2023-01-11 13:13] LABS: CREATININE 0.7 mg/dL (0.55-1.3)
[2023-01-11] MEDS: DEXTROSE 5%-WATER - 1,000 ML IV SCH (18:16)
[2023-01-11 20:23] VITALS: BP 104/62; PULSE 58; RESP 17; TEMP 98.3
[2023-01-11] MEDS ORDERED: APIXABAN 5 MG TABLET PO SCH (22:00)
== END 2023-01-11 23:03 | DRG 425 ==
LOC: JER 00:57 → JERBED 04:01 → OBSVTOIN 06:15 → J7W 09:58
PROVIDERS: ADMIT Internal Medicine
DX: E87.0 Hyperosmolality and hypernatremia (principal); R56.9 Unspecified convulsions; I48.91 Unspecified atrial fibrillation; G30.9 Alzheimer's disease, unspecified; F02.80 Dementia in other diseases classified elsewhere, unspecified severity, without behavioral disturbance, psychotic disturbance, mood disturbance, and anxiety; I10 Essential (primary) hypertension; I73.9 Peripheral vascular disease, unspecified
CPT/HCPCS: 36415; 71045-TC-FY; 80048; 80053; 85025; 85610; 85730; 86850; 86900; 86901; 93005; 93010; 99285-25; G0378

== ENCOUNTER 2023-04-16 13:09 | Inpatient (IN) | payer OTHER ==
[2023-04-16 15:11] LABS: BASO % 0.2 % (0-2.0); EOS % 1.4 % (0-4.5); HEMATOCRIT 43.1 % (35.4-49); HEMOGLOBIN 13.6 GM/dL (11.7-16.9); LYMPH % 30.8 % (8-40); MCH 28.8 pg (25.7-33.7); MCHC 31.5 g/dl (32.0-35.9); MEAN CELL VOLUME 91.4 fl (80-96); MEAN PLT VOLUME 8.8 fl (7.5-11.1); MONO % 12.4 % (3.8-10.2); NEUT % 55.2 % (42.8-82.8); PLATELET COUNT 301 10^3/uL (134-434); RBC 4.72 M/mm3 (4.00-5.60); WHITE BLOOD COUNT 5.3 K/mm3 (4.0-10.0)
[2023-04-16 15:13] LABS: INR 1.17 (0.83-1.09); PROTHROMBIN TIME (PATIENT) 13.5 SEC (9.7-13.0)
[2023-04-16 15:15] LABS: ACTIVATED PTT 33.3 SECONDS (25.2-36.5)
[2023-04-16 15:43] LABS: ALBUMIN 2.6 g/dl (3.4-5.0); BLOOD UREA NITROGEN 23.9 mg/dL (7-18); MAGNESIUM 2.6 mg/dL (1.8-2.4)
[2023-04-16 15:46] LABS: CREATININE 0.7 mg/dL (0.55-1.3)
[2023-04-16 15:48] LABS: BILIRUBIN,TOTAL 0.6 mg/dL (0.2-1); TOT PROT 8.4 g/dl (6.4-8.2)
[2023-04-16] MEDS ORDERED: SODIUM CHLORIDE 0.9% 500 ML INFUS.BAG IV ONE (15:50)
[2023-04-16] MEDS ORDERED: VANCOMYCIN 1,000 MG in DEXTROSE 5%-WATER - 250 ML IVPB ONE (16:10)
[2023-04-16] MEDS ORDERED: PIPERACILLIN/TAZOB 4.5 GM 4.5 GM in DEXTROSE 5%-WATER 100 ML IVPB ONE (16:11)
[2023-04-16 16:26] LABS: VENOUS BASE EXCESS 2.9 mmol/L (-2-2); VENOUS O2 SATURATION 93.2 % (70-80); VENOUS PH 7.361 (7.310-7.410)
[2023-04-16 16:27] LABS: BASO % 0.3 % (0-2.0); EOS % 0.9 % (0-4.5); HEMATOCRIT 41.7 % (35.4-49); HEMOGLOBIN 13.6 GM/dL (11.7-16.9); LYMPH % 29.5 % (8-40); MCH 29.1 pg (25.7-33.7); MCHC 32.5 g/dl (32.0-35.9); MEAN CELL VOLUME 89.5 fl (80-96); MEAN PLT VOLUME 8.6 fl (7.5-11.1); MONO % 13.4 % (3.8-10.2); NEUT % 55.9 % (42.8-82.8); PLATELET COUNT 293 10^3/uL (134-434); RBC 4.66 M/mm3 (4.00-5.60); RDW 17.2 % (11.9-15.9); WHITE BLOOD COUNT 7.1 K/mm3 (4.0-10.0)
[2023-04-16 16:29] LABS: EPI CELLS 10 /uL (0-25.1); HYALINE CASTS 1 /uL (0-3.1); PH,URINE 6.5 (5.0-8.0); URINE APPEARANCE CLOUDY; URINE BACTERIA >9,000 /uL (0-1359); URINE BILIRUBIN NEGATIVE (NEGATIVE); URINE COLOR YELLOW; URINE GLUCOSE (UA) NEGATIVE (NEGATIVE); URINE KETONE TRACE (NEGATIVE); URINE LEUK ESTERASE 3+ (NEGATIVE); URINE NITRITE NEGATIVE (NEGATIVE); URINE PROTEIN 3+ (NEGATIVE); URINE RBC 661 /uL (0-23.9); URINE WBC 2061 /uL (0-25.8)
[2023-04-16] MEDS ORDERED: SODIUM CHLORIDE 0.45% 1,000 ML IV SCH ×2 (17:15)
[2023-04-16] MEDS ORDERED: PIPERACILLIN/TAZOB 4.5 GM 4.5 GM/100 ML BAG IVPB ONE (18:43)
[2023-04-16] MEDS ORDERED: VANCOMYCIN/WATER 1250 MG 1,250 MG/250 ML BAG IVPB ONE ×2 (18:44→18:45)
[2023-04-16] MEDS ORDERED: VANCOMYCIN 1 GRAM (PRE-DOCKED) 1,000 MG/250 ML BAG IVPB ONE (18:45)
[2023-04-16 21:32] LABS: BASO % 0.5 % (0-2.0); EOS % 0.3 % (0-4.5); HEMATOCRIT 44.9 % (35.4-49); HEMOGLOBIN 14.7 GM/dL (11.7-16.9); LYMPH % 16.8 % (8-40); MCH 29.5 pg (25.7-33.7); MCHC 32.7 g/dl (32.0-35.9); MEAN PLT VOLUME 8.3 fl (7.5-11.1); MONO % 6.8 % (3.8-10.2); NEUT % 75.6 % (42.8-82.8); PLATELET COUNT 275 10^3/uL (134-434); RBC 4.99 M/mm3 (4.00-5.60); RDW 17.1 % (11.9-15.9); WHITE BLOOD COUNT 7.9 K/mm3 (4.0-10.0)
[2023-04-16 21:58] LABS: CHLORIDE 125 mmol/L (98-107); POTASSIUM 3.3 mmol/L (3.5-5.1)
[2023-04-16 21:59] LABS: CALCIUM 9.4 mg/dL (8.5-10.1)
[2023-04-16 22:00] LABS: BLOOD UREA NITROGEN 24.6 mg/dL (7-18); CO2 33 mmol/L (21-32); GLUCOSE,RANDOM 122 mg/dL (74-106)
[2023-04-16 22:04] LABS: ANION GAP 5 mmol/L (4-13); SODIUM 163 mmol/L (136-145)
[2023-04-17] MEDS ORDERED: PIPERACILLIN/TAZOB 3.375 GM 3.375 GM/50 ML BAG IVPB ONE ×3 (03:02→17:24)
[2023-04-17] MEDS: PIPERACILLIN/TAZOB 3.375 GM 3.375 GM in DEXTROSE 5%-WATER - 50 ML IVPB SCH ×3 (03:07→13:42)
[2023-04-17] MEDS ORDERED: ACETAMINOPHEN 325 MG TABLET (FP) PO PRN (04:19)
[2023-04-17] MEDS ORDERED: levETIRAcetam 500 MG/5 ML ORAL SOLUTION (UNIT-DOSE CUPS) PO ONE (04:24)
[2023-04-17] MEDS ORDERED: levETIRAcetam 500 MG/5 ML INJECTION VIAL IVPB ONE (04:52)
[2023-04-17 05:54] LABS: BASO % 0.2 % (0-2.0); EOS % 0.1 % (0-4.5); HEMATOCRIT 44.5 % (35.4-49); MCH 28.5 pg (25.7-33.7); MCHC 31.4 g/dl (32.0-35.9); MEAN PLT VOLUME 8.3 fl (7.5-11.1); MONO % 5.9 % (3.8-10.2); NEUT % 86.8 % (42.8-82.8); PLATELET COUNT 281 10^3/uL (134-434); RDW 17.1 % (11.9-15.9); WHITE BLOOD COUNT 18.4 K/mm3 (4.0-10.0)
[2023-04-17 06:14] LABS: CHLORIDE 127 mmol/L (98-107); SODIUM 160 mmol/L (136-145)
[2023-04-17 06:16] LABS: CALCIUM 8.9 mg/dL (8.5-10.1)
[2023-04-17 06:17] LABS: ALBUMIN 2.4 g/dl (3.4-5.0); BLOOD UREA NITROGEN 23.4 mg/dL (7-18); CO2 31 mmol/L (21-32); GLUCOSE,RANDOM 130 mg/dL (74-106); MAGNESIUM 2.5 mg/dL (1.8-2.4)
[2023-04-17 06:20] LABS: CREATININE 1.1 mg/dL (0.55-1.3); PHOSPHOROUS 3.2 mg/dL (2.5-4.9); SGOT/AST 24 U/L (15-37); SGPT/ALT 18 U/L (13-61)
[2023-04-17 06:21] LABS: TOT PROT 8.1 g/dl (6.4-8.2)
[2023-04-17 06:22] LABS: BILIRUBIN,TOTAL 1.1 mg/dL (0.2-1)
[2023-04-17 06:23] LABS: ALK PHOS 101 U/L (45-117)
[2023-04-17 06:58] LABS: ANION GAP 2 mmol/L (4-13); POTASSIUM 2.9 mmol/L (3.5-5.1)
[2023-04-17] MEDS ORDERED: DEXTROSE 5%-WATER - 1,000 ML IV SCH (08:15)
[2023-04-17] MEDS ORDERED: POTASSIUM CHLORIDE TABS 20 MEQ TABLET.ER (FP) PO ONE ×2 (08:24→09:32)
[2023-04-17] MEDS ORDERED: KCL 10 MEQ IVPB 30 MEQ/300 ML INFUS.BAG IVPB ONE (08:44)
[2023-04-17] MEDS: KCL 10 MEQ IVPB 10 MEQ/100 ML INFUS.BAG IVPB SCH ×4 (08:45→22:56)
[2023-04-17] MEDS: levETIRAcetam 500 MG/5 ML INJECTION VIAL IVPB SCH ×2 (09:37→22:21)
[2023-04-17] MEDS: amLODIPine BESYLATE 10 MG TABLET (FP) PO SCH (09:37)
[2023-04-17] MEDS: POLYETHYLENE GLYCOL (HEALTHYLAX) 3350 17 GM PACKET PO SCH ×2 (09:37→22:21)
[2023-04-17] MEDS ORDERED: levETIRAcetam 500 MG/5 ML ORAL SOLUTION (UNIT-DOSE CUPS) PO SCH (10:00)
[2023-04-17] MEDS ORDERED: FUROSEMIDE 20 MG TABLET (FP) PO SCH (10:00)
[2023-04-17 12:11] LABS: POTASSIUM 3.7 mmol/L (3.5-5.1)
[2023-04-17 12:12] LABS: CALCIUM 9.2 mg/dL (8.5-10.1)
[2023-04-17 12:13] LABS: BLOOD UREA NITROGEN 26.4 mg/dL (7-18)
[2023-04-17 12:16] LABS: CREATININE 1.2 mg/dL (0.55-1.3)
[2023-04-17] MEDS ORDERED: PIPERACILLIN/TAZOB 4.5 GM 4.5 GM/100 ML BAG IVPB ONE (17:27)
[2023-04-17] MEDS: PIPERACILLIN/TAZOB 4.5 GM 4.5 GM in DEXTROSE 5%-WATER 100 ML IVPB SCH (17:33)
[2023-04-17] MEDS ORDERED: MAGNESIUM CITRATE 300 ML BOTTLE PO PRN (19:50)
[2023-04-17] MEDS ORDERED: MINERAL OIL ENEMA 133 ML ENEMA RC ONE (19:51)
[2023-04-17 20:50] LABS: CHLORIDE 128 mmol/L (98-107); POTASSIUM 3.1 mmol/L (3.5-5.1)
[2023-04-17 20:53] LABS: GLUCOSE,RANDOM 172 mg/dL (74-106)
[2023-04-17 20:54] LABS: BLOOD UREA NITROGEN 24.9 mg/dL (7-18); CO2 32 mmol/L (21-32)
[2023-04-17 20:57] LABS: CREATININE 0.9 mg/dL (0.55-1.3)
[2023-04-17 20:58] LABS: ANION GAP 2 mmol/L (4-13); SODIUM 161 mmol/L (136-145)
[2023-04-17] MEDS: MELATONIN 5 MG TABLETS PO SCH (22:21)
[2023-04-18] MEDS: KCL 10 MEQ IVPB 10 MEQ/100 ML INFUS.BAG IVPB SCH ×4 (00:06→11:06)
[2023-04-18] MEDS ORDERED: PIPERACILLIN/TAZOBACTAM 4.5 GM VIAL IVPB ONE (03:11)
[2023-04-18] MEDS: PIPERACILLIN/TAZOB 4.5 GM 4.5 GM in DEXTROSE 5%-WATER 100 ML IVPB SCH ×3 (03:12→17:17)
[2023-04-18] MEDS: DEXTROSE 5%-WATER - 1,000 ML IV SCH (05:00)
[2023-04-18 07:59] LABS: BASO % 0.3 % (0-2.0); EOS % 0.8 % (0-4.5); HEMATOCRIT 37.8 % (35.4-49); HEMOGLOBIN 11.9 GM/dL (11.7-16.9); MCH 28.6 pg (25.7-33.7); MCHC 31.6 g/dl (32.0-35.9); MEAN CELL VOLUME 90.5 fl (80-96); MEAN PLT VOLUME 8.4 fl (7.5-11.1); NEUT % 82.9 % (42.8-82.8); PLATELET COUNT 249 10^3/uL (134-434); RBC 4.17 M/mm3 (4.00-5.60); RDW 16.9 % (11.9-15.9)
[2023-04-18] MEDS ORDERED: MINERAL OIL ENEMA 133 ML ENEMA RC ONE ×2 (08:00→10:00)
[2023-04-18 08:16] LABS: POTASSIUM 3.1 mmol/L (3.5-5.1)
[2023-04-18 08:17] LABS: CALCIUM 8.5 mg/dL (8.5-10.1)
[2023-04-18 08:18] LABS: BLOOD UREA NITROGEN 21.4 mg/dL (7-18)
[2023-04-18 08:21] LABS: CREATININE 0.9 mg/dL (0.55-1.3)
[2023-04-18] MEDS: levETIRAcetam 500 MG/5 ML INJECTION VIAL IVPB SCH ×2 (10:01→22:39)
[2023-04-18] MEDS: POLYETHYLENE GLYCOL (HEALTHYLAX) 3350 17 GM PACKET PO SCH ×2 (10:02→22:38)
[2023-04-18] MEDS: ACETAMINOPHEN 1000 MG/100 ML BAG IVPB PRN ×2 (10:03→22:16)
[2023-04-18] MEDS: amLODIPine BESYLATE 10 MG TABLET (FP) PO SCH (11:48)
[2023-04-18] MEDS: MELATONIN 5 MG TABLETS PO SCH (22:17)
[2023-04-19] MEDS: DEXTROSE 5%-WATER - 1,000 ML IV SCH (01:28)
[2023-04-19] MEDS: PIPERACILLIN/TAZOB 4.5 GM 4.5 GM in DEXTROSE 5%-WATER 100 ML IVPB SCH ×3 (01:30→17:33)
[2023-04-19] MEDS: APIXABAN 5 MG TABLET PO SCH ×2 (10:23→21:42)
[2023-04-19] MEDS: levETIRAcetam 500 MG/5 ML INJECTION VIAL IVPB SCH ×2 (10:23→21:42)
[2023-04-19] MEDS: amLODIPine BESYLATE 10 MG TABLET (FP) PO SCH (10:23)
[2023-04-19] MEDS: POLYETHYLENE GLYCOL (HEALTHYLAX) 3350 17 GM PACKET PO SCH ×2 (10:23→21:57)
[2023-04-19 11:51] LABS: BASO % 0.1 % (0-2.0); EOS % 0.8 % (0-4.5); HEMATOCRIT 35.8 % (35.4-49); LYMPH % 8.4 % (8-40); MCH 29.2 pg (25.7-33.7); MCHC 33.4 g/dl (32.0-35.9); MEAN CELL VOLUME 87.4 fl (80-96); MEAN PLT VOLUME 8.1 fl (7.5-11.1); MONO % 5.4 % (3.8-10.2); NEUT % 85.3 % (42.8-82.8); PLATELET COUNT 207 10^3/uL (134-434); RBC 4.09 M/mm3 (4.00-5.60); RDW 16.3 % (11.9-15.9); WHITE BLOOD COUNT 10.3 K/mm3 (4.0-10.0)
[2023-04-19] MEDS ORDERED: ALBUTEROL SO4 2.5/IPRATROPIUM 0.5 INH SOL 3 ML VIAL.NEB. NEB SCH (12:00)
[2023-04-19 12:16] LABS: CHLORIDE 111 mmol/L (98-107); SODIUM 140 mmol/L (136-145)
[2023-04-19 12:18] LABS: CALCIUM 8.1 mg/dL (8.5-10.1)
[2023-04-19 12:19] LABS: BLOOD UREA NITROGEN 11.8 mg/dL (7-18); CO2 27 mmol/L (21-32); GLUCOSE,RANDOM 151 mg/dL (74-106)
[2023-04-19 12:22] LABS: CREATININE 0.6 mg/dL (0.55-1.3); SGOT/AST 13 U/L (15-37); SGPT/ALT 9 U/L (13-61)
[2023-04-19 12:24] LABS: BILIRUBIN,TOTAL 1.2 mg/dL (0.2-1); TOT PROT 6.8 g/dl (6.4-8.2)
[2023-04-19 12:26] LABS: ALK PHOS 90 U/L (45-117)
[2023-04-19 12:30] LABS: ALBUMIN 1.8 g/dl (3.4-5.0); ANION GAP 3 mmol/L (4-13); POTASSIUM 2.5 mmol/L (3.5-5.1)
[2023-04-19] MEDS: POTASSIUM CHLORIDE ORAL LIQUID 20 MEQ/15 ML PO SCH ×2 (14:12→21:42)
[2023-04-19] MEDS: ACETYLCYSTEINE 20% 200MG/ML 4 ML VIAL *FOR ORAL / INH USE ONLY NEB SCH ×3 (15:06→20:12)
[2023-04-19] MEDS: ALBUTEROL SO4 0.083% IH SOL 2.5 MG/3 ML VIAL.NEB. NEB SCH ×3 (15:06→20:13)
[2023-04-19 20:21] LABS: CHLORIDE 115 mmol/L (98-107); SODIUM 146 mmol/L (136-145)
[2023-04-19 20:25] LABS: BLOOD UREA NITROGEN 10.3 mg/dL (7-18); CO2 29 mmol/L (21-32); GLUCOSE,RANDOM 114 mg/dL (74-106)
[2023-04-19 20:28] LABS: CREATININE 0.6 mg/dL (0.55-1.3)
[2023-04-19 20:33] LABS: ANION GAP 2 mmol/L (4-13); POTASSIUM 2.8 mmol/L (3.5-5.1)
[2023-04-19] MEDS: MELATONIN 5 MG TABLETS PO SCH (21:42)
[2023-04-20] MEDS ORDERED: ACETAMINOPHEN 1000 MG/100 ML BAG IVPB PRN (01:24)
[2023-04-20] MEDS: PIPERACILLIN/TAZOB 4.5 GM 4.5 GM in DEXTROSE 5%-WATER 100 ML IVPB SCH ×3 (01:25→17:14)
[2023-04-20] MEDS: ACETYLCYSTEINE 20% 200MG/ML 4 ML VIAL *FOR ORAL / INH USE ONLY NEB SCH ×4 (07:49→20:47)
[2023-04-20] MEDS: ALBUTEROL SO4 0.083% IH SOL 2.5 MG/3 ML VIAL.NEB. NEB SCH ×4 (07:50→20:47)
[2023-04-20 09:42] LABS: BASO % 0.2 % (0-2.0); EOS % 0.9 % (0-4.5); HEMATOCRIT 35.7 % (35.4-49); HEMOGLOBIN 11.4 GM/dL (11.7-16.9); LYMPH % 13.5 % (8-40); MCH 28.5 pg (25.7-33.7); MEAN PLT VOLUME 9.1 fl (7.5-11.1); MONO % 5.8 % (3.8-10.2); NEUT % 79.6 % (42.8-82.8); PLATELET COUNT 230 10^3/uL (134-434); RBC 4.01 M/mm3 (4.00-5.60); RDW 16.2 % (11.9-15.9); WHITE BLOOD COUNT 10.6 K/mm3 (4.0-10.0)
[2023-04-20] MEDS: POTASSIUM CHLORIDE ORAL LIQUID 20 MEQ/15 ML PO SCH ×2 (09:42→22:00)
[2023-04-20] MEDS: POLYETHYLENE GLYCOL (HEALTHYLAX) 3350 17 GM PACKET PO SCH ×2 (09:42→22:00)
[2023-04-20] MEDS: levETIRAcetam 500 MG/5 ML INJECTION VIAL IVPB SCH ×2 (09:43→22:00)
[2023-04-20] MEDS: APIXABAN 5 MG TABLET PO SCH ×2 (09:43→22:00)
[2023-04-20] MEDS: amLODIPine BESYLATE 10 MG TABLET (FP) PO SCH (09:43)
[2023-04-20 09:56] LABS: CHLORIDE 113 mmol/L (98-107); SODIUM 144 mmol/L (136-145)
[2023-04-20 10:00] LABS: ALBUMIN 1.8 g/dl (3.4-5.0); CALCIUM 8.3 mg/dL (8.5-10.1); CO2 28 mmol/L (21-32); GLUCOSE,RANDOM 97 mg/dL (74-106)
[2023-04-20 10:01] LABS: BLOOD UREA NITROGEN 10.4 mg/dL (7-18)
[2023-04-20 10:03] LABS: CREATININE 0.6 mg/dL (0.55-1.3); SGOT/AST 15 U/L (15-37)
[2023-04-20 10:04] LABS: SGPT/ALT 7 U/L (13-61)
[2023-04-20 10:05] LABS: TOT PROT 6.6 g/dl (6.4-8.2)
[2023-04-20 10:06] LABS: ALK PHOS 92 U/L (45-117)
[2023-04-20 10:07] LABS: ANION GAP 3 mmol/L (4-13); POTASSIUM 2.9 mmol/L (3.5-5.1)
[2023-04-20] MEDS: KCL 10 MEQ IVPB 10 MEQ/100 ML INFUS.BAG IVPB SCH ×2 (13:08→14:09)
[2023-04-20] MEDS: MELATONIN 5 MG TABLETS PO SCH (22:01)
[2023-04-21] MEDS: PIPERACILLIN/TAZOB 4.5 GM 4.5 GM in DEXTROSE 5%-WATER 100 ML IVPB SCH ×3 (01:54→17:08)
[2023-04-21] MEDS: ALBUTEROL SO4 0.083% IH SOL 2.5 MG/3 ML VIAL.NEB. NEB SCH ×4 (07:33→19:48)
[2023-04-21] MEDS: ACETYLCYSTEINE 20% 200MG/ML 4 ML VIAL *FOR ORAL / INH USE ONLY NEB SCH ×4 (07:33→19:49)
[2023-04-21 08:46] LABS: BASO % 0.2 % (0-2.0); EOS % 2.8 % (0-4.5); HEMATOCRIT 33.5 % (35.4-49); HEMOGLOBIN 10.7 GM/dL (11.7-16.9); LYMPH % 15.2 % (8-40); MCH 28.5 pg (25.7-33.7); MEAN PLT VOLUME 8.6 fl (7.5-11.1); MONO % 8.4 % (3.8-10.2); NEUT % 73.4 % (42.8-82.8); PLATELET COUNT 211 10^3/uL (134-434); RBC 3.77 M/mm3 (4.00-5.60); RDW 16.2 % (11.9-15.9)
[2023-04-21 08:58] LABS: POTASSIUM 3.5 mmol/L (3.5-5.1)
[2023-04-21 09:02] LABS: CALCIUM 8.3 mg/dL (8.5-10.1)
[2023-04-21 09:03] LABS: BLOOD UREA NITROGEN 6.2 mg/dL (7-18)
[2023-04-21 09:06] LABS: CREATININE 0.5 mg/dL (0.55-1.3)
[2023-04-21] MEDS: POTASSIUM CHLORIDE ORAL LIQUID 20 MEQ/15 ML PO SCH (10:12)
[2023-04-21] MEDS: amLODIPine BESYLATE 10 MG TABLET (FP) PO SCH (10:12)
[2023-04-21] MEDS: APIXABAN 5 MG TABLET PO SCH (10:12)
[2023-04-21] MEDS: POLYETHYLENE GLYCOL (HEALTHYLAX) 3350 17 GM PACKET PO SCH (10:12)
[2023-04-21] MEDS: levETIRAcetam 500 MG/5 ML INJECTION VIAL IVPB SCH ×2 (10:13→22:39)
[2023-04-22] MEDS: APIXABAN 5 MG TABLET PO SCH ×3 (01:13→21:15)
[2023-04-22] MEDS: POLYETHYLENE GLYCOL (HEALTHYLAX) 3350 17 GM PACKET PO SCH ×3 (01:14→21:14)
[2023-04-22] MEDS: POTASSIUM CHLORIDE ORAL LIQUID 20 MEQ/15 ML PO SCH ×3 (01:15→21:15)
[2023-04-22] MEDS: MELATONIN 5 MG TABLETS PO SCH ×2 (01:15→21:15)
[2023-04-22] MEDS: PIPERACILLIN/TAZOB 4.5 GM 4.5 GM in DEXTROSE 5%-WATER 100 ML IVPB SCH ×3 (02:07→17:09)
[2023-04-22] MEDS: ALBUTEROL SO4 0.083% IH SOL 2.5 MG/3 ML VIAL.NEB. NEB SCH ×4 (07:15→20:20)
[2023-04-22] MEDS: ACETYLCYSTEINE 20% 200MG/ML 4 ML VIAL *FOR ORAL / INH USE ONLY NEB SCH ×4 (07:15→20:20)
[2023-04-22 07:51] LABS: BASO % 0.3 % (0-2.0); EOS % 1.6 % (0-4.5); HEMATOCRIT 35.2 % (35.4-49); HEMOGLOBIN 11.2 GM/dL (11.7-16.9); LYMPH % 17.8 % (8-40); MCH 28.5 pg (25.7-33.7); MCHC 31.8 g/dl (32.0-35.9); MEAN CELL VOLUME 89.4 fl (80-96); MEAN PLT VOLUME 8.3 fl (7.5-11.1); MONO % 10.4 % (3.8-10.2); NEUT % 69.9 % (42.8-82.8); PLATELET COUNT 242 10^3/uL (134-434); RBC 3.94 M/mm3 (4.00-5.60); RDW 16.1 % (11.9-15.9); WHITE BLOOD COUNT 6.4 K/mm3 (4.0-10.0)
[2023-04-22 08:05] LABS: POTASSIUM 3.5 mmol/L (3.5-5.1)
[2023-04-22 08:08] LABS: BLOOD UREA NITROGEN 4.3 mg/dL (7-18); CALCIUM 8.3 mg/dL (8.5-10.1); MAGNESIUM 2.1 mg/dL (1.8-2.4)
[2023-04-22 08:09] LABS: ALBUMIN 1.8 g/dl (3.4-5.0)
[2023-04-22 08:12] LABS: CREATININE 0.5 mg/dL (0.55-1.3)
[2023-04-22 08:13] LABS: BILIRUBIN,TOTAL 0.6 mg/dL (0.2-1); TOT PROT 6.8 g/dl (6.4-8.2)
[2023-04-22 08:32] LABS: EPI CELLS 5 /uL (0-25.1); HYALINE CASTS 0 /uL (0-3.1); URINE APPEARANCE CLEAR; URINE BACTERIA 2 /uL (0-1359); URINE BILIRUBIN NEGATIVE (NEGATIVE); URINE COLOR YELLOW; URINE GLUCOSE (UA) NEGATIVE (NEGATIVE); URINE KETONE NEGATIVE (NEGATIVE); URINE LEUK ESTERASE TRACE (NEGATIVE); URINE NITRITE NEGATIVE (NEGATIVE); URINE PROTEIN 1+ (NEGATIVE); URINE RBC 1237 /uL (0-23.9); URINE UROBILINOGEN 0.2 mg/dL (0.2-1.0); URINE WBC 27 /uL (0-25.8)
[2023-04-22] MEDS: levETIRAcetam 500 MG/5 ML INJECTION VIAL IVPB SCH ×2 (10:03→21:15)
[2023-04-22] MEDS: amLODIPine BESYLATE 10 MG TABLET (FP) PO SCH (10:04)
[2023-04-22 14:45] VITALS: BMI 22.3
[2023-04-23] MEDS: PIPERACILLIN/TAZOB 4.5 GM 4.5 GM in DEXTROSE 5%-WATER 100 ML IVPB SCH ×3 (01:15→17:59)
[2023-04-23] MEDS: ACETYLCYSTEINE 20% 200MG/ML 4 ML VIAL *FOR ORAL / INH USE ONLY NEB SCH ×4 (08:51→20:30)
[2023-04-23] MEDS: ALBUTEROL SO4 0.083% IH SOL 2.5 MG/3 ML VIAL.NEB. NEB SCH ×4 (08:52→20:30)
[2023-04-23] MEDS: POTASSIUM CHLORIDE ORAL LIQUID 20 MEQ/15 ML PO SCH ×2 (10:18→22:04)
[2023-04-23] MEDS: levETIRAcetam 500 MG/5 ML INJECTION VIAL IVPB SCH ×2 (10:19→22:04)
[2023-04-23] MEDS: POLYETHYLENE GLYCOL (HEALTHYLAX) 3350 17 GM PACKET PO SCH ×2 (10:20→22:04)
[2023-04-23] MEDS: amLODIPine BESYLATE 10 MG TABLET (FP) PO SCH (10:20)
[2023-04-23] MEDS: APIXABAN 5 MG TABLET PO SCH ×2 (10:20→22:04)
[2023-04-23] MEDS: AMINO ACIDS 4.25%/D5W 1,000 ML IV SCH ×2 (13:08→22:57)
[2023-04-23] MEDS ORDERED: FAT EMULSION/OLIVE/SOY (CLINOLIPID) 500 ML EMULSION IV SCH (22:00)
[2023-04-23] MEDS: MELATONIN 5 MG TABLETS PO SCH (22:04)
[2023-04-23] MEDS: FAT EMULSION/OLIVE/SOY/PHOSPHO 500 ML IV SCH (22:56)
[2023-04-24] MEDS: PIPERACILLIN/TAZOB 4.5 GM 4.5 GM in DEXTROSE 5%-WATER 100 ML IVPB SCH ×3 (02:13→17:00)
[2023-04-24 07:35] LABS: BASO % 0.2 % (0-2.0); EOS % 2.9 % (0-4.5); HEMATOCRIT 30.1 % (35.4-49); HEMOGLOBIN 10.3 GM/dL (11.7-16.9); MCH 30.3 pg (25.7-33.7); MCHC 34.3 g/dl (32.0-35.9); MEAN CELL VOLUME 88.3 fl (80-96); MONO % 13.2 % (3.8-10.2); NEUT % 64.7 % (42.8-82.8); PLATELET COUNT 315 10^3/uL (134-434); RDW 15.8 % (11.9-15.9); WHITE BLOOD COUNT 5.3 K/mm3 (4.0-10.0)
[2023-04-24 07:52] LABS: POTASSIUM 3.6 mmol/L (3.5-5.1)
[2023-04-24 07:55] LABS: CALCIUM 7.8 mg/dL (8.5-10.1)
[2023-04-24 07:56] LABS: ALBUMIN 1.8 g/dl (3.4-5.0); BLOOD UREA NITROGEN 8.5 mg/dL (7-18)
[2023-04-24 07:59] LABS: CREATININE 0.5 mg/dL (0.55-1.3)
[2023-04-24 08:00] LABS: BILIRUBIN,TOTAL 0.4 mg/dL (0.2-1); TOT PROT 6.6 g/dl (6.4-8.2)
[2023-04-24] MEDS: ALBUTEROL SO4 0.083% IH SOL 2.5 MG/3 ML VIAL.NEB. NEB SCH (08:20)
[2023-04-24] MEDS: ACETYLCYSTEINE 20% 200MG/ML 4 ML VIAL *FOR ORAL / INH USE ONLY NEB SCH ×4 (08:20→20:29)
[2023-04-24] MEDS: AMINO ACIDS 4.25%/D5W 1,000 ML IV SCH ×2 (10:17→22:15)
[2023-04-24] MEDS: APIXABAN 5 MG TABLET PO SCH ×2 (10:22→22:14)
[2023-04-24] MEDS: POLYETHYLENE GLYCOL (HEALTHYLAX) 3350 17 GM PACKET PO SCH ×2 (10:22→21:49)
[2023-04-24] MEDS: POTASSIUM CHLORIDE ORAL LIQUID 20 MEQ/15 ML PO SCH ×2 (10:23→22:13)
[2023-04-24] MEDS: amLODIPine BESYLATE 10 MG TABLET (FP) PO SCH (10:23)
[2023-04-24] MEDS: levETIRAcetam 500 MG/5 ML INJECTION VIAL IVPB SCH ×2 (10:46→22:14)
[2023-04-24] MEDS ORDERED: ALBUTEROL SO4 0.083% IH SOL 2.5 MG/3 ML VIAL.NEB. NEB ONE (19:58)
[2023-04-24] MEDS: FAT EMULSION/OLIVE/SOY/PHOSPHO 500 ML IV SCH (22:14)
[2023-04-24] MEDS: MELATONIN 5 MG TABLETS PO SCH (22:15)
[2023-04-25] MEDS: PIPERACILLIN/TAZOB 4.5 GM 4.5 GM in DEXTROSE 5%-WATER 100 ML IVPB SCH ×3 (02:32→17:20)
[2023-04-25] MEDS: ACETYLCYSTEINE 20% 200MG/ML 4 ML VIAL *FOR ORAL / INH USE ONLY NEB SCH ×5 (08:52→20:12)
[2023-04-25] MEDS: APIXABAN 5 MG TABLET PO SCH ×2 (10:13→22:40)
[2023-04-25] MEDS: amLODIPine BESYLATE 10 MG TABLET (FP) PO SCH (10:13)
[2023-04-25] MEDS: POTASSIUM CHLORIDE ORAL LIQUID 20 MEQ/15 ML PO SCH ×2 (10:13→22:40)
[2023-04-25] MEDS: POLYETHYLENE GLYCOL (HEALTHYLAX) 3350 17 GM PACKET PO SCH ×2 (10:13→22:40)
[2023-04-25] MEDS: levETIRAcetam 500 MG/5 ML INJECTION VIAL IVPB SCH ×2 (10:13→22:40)
[2023-04-25] MEDS: AMINO ACIDS 4.25%/D5W 1,000 ML IV SCH (10:47)
[2023-04-25] MEDS: ALBUTEROL SO4 0.083% IH SOL 2.5 MG/3 ML VIAL.NEB. NEB SCH ×3 (12:17→20:13)
[2023-04-25] MEDS: FAT EMULSION/OLIVE/SOY/PHOSPHO 500 ML IV SCH (22:40)
[2023-04-25] MEDS: MELATONIN 5 MG TABLETS PO SCH (22:40)
[2023-04-26] MEDS: PIPERACILLIN/TAZOB 4.5 GM 4.5 GM in DEXTROSE 5%-WATER 100 ML IVPB SCH ×3 (01:06→17:24)
[2023-04-26] MEDS: AMINO ACIDS 4.25%/D5W 1,000 ML IV SCH (03:21)
[2023-04-26] MEDS: ACETYLCYSTEINE 20% 200MG/ML 4 ML VIAL *FOR ORAL / INH USE ONLY NEB SCH ×4 (07:10→20:00)
[2023-04-26] MEDS: ALBUTEROL SO4 0.083% IH SOL 2.5 MG/3 ML VIAL.NEB. NEB SCH ×4 (07:10→20:00)
[2023-04-26] MEDS: POLYETHYLENE GLYCOL (HEALTHYLAX) 3350 17 GM PACKET PO SCH ×2 (10:25→22:02)
[2023-04-26] MEDS: amLODIPine BESYLATE 10 MG TABLET (FP) PO SCH (10:26)
[2023-04-26] MEDS: ENOXAPARIN NA (PORCINE) 60 MG/0.6 ML DISP.SYRIN SQ SCH ×2 (10:26→22:02)
[2023-04-26] MEDS: levETIRAcetam 500 MG/5 ML ORAL SOLUTION (UNIT-DOSE CUPS) PO SCH ×2 (10:26→22:02)
[2023-04-26] MEDS: POTASSIUM CHLORIDE ORAL LIQUID 20 MEQ/15 ML PO SCH ×2 (10:26→22:03)
[2023-04-26] MEDS: MELATONIN 5 MG TABLETS PO SCH (22:03)
[2023-04-27] MEDS: PIPERACILLIN/TAZOB 4.5 GM 4.5 GM in DEXTROSE 5%-WATER 100 ML IVPB SCH ×3 (01:08→17:25)
[2023-04-27] MEDS: ACETYLCYSTEINE 20% 200MG/ML 4 ML VIAL *FOR ORAL / INH USE ONLY NEB SCH ×4 (08:28→20:20)
[2023-04-27] MEDS: ALBUTEROL SO4 0.083% IH SOL 2.5 MG/3 ML VIAL.NEB. NEB SCH ×4 (08:29→20:20)
[2023-04-27] MEDS: amLODIPine BESYLATE 10 MG TABLET (FP) PO SCH (10:14)
[2023-04-27] MEDS: levETIRAcetam 500 MG/5 ML ORAL SOLUTION (UNIT-DOSE CUPS) PO SCH ×2 (10:14→21:54)
[2023-04-27] MEDS: ENOXAPARIN NA (PORCINE) 60 MG/0.6 ML DISP.SYRIN SQ SCH ×2 (10:14→21:55)
[2023-04-27] MEDS: POLYETHYLENE GLYCOL (HEALTHYLAX) 3350 17 GM PACKET PO SCH ×2 (10:15→21:53)
[2023-04-27] MEDS: POTASSIUM CHLORIDE ORAL LIQUID 20 MEQ/15 ML PO SCH ×2 (13:25→21:55)
[2023-04-27] MEDS: AMINO ACIDS/PROTEIN HYDROLYS 30 ML LIQUID.PKT NGT SCH (17:25)
[2023-04-27] MEDS: MELATONIN 5 MG TABLETS PO SCH (21:55)
[2023-04-28] MEDS: PIPERACILLIN/TAZOB 4.5 GM 4.5 GM in DEXTROSE 5%-WATER 100 ML IVPB SCH ×3 (01:41→17:47)
[2023-04-28] MEDS: ACETYLCYSTEINE 20% 200MG/ML 4 ML VIAL *FOR ORAL / INH USE ONLY NEB SCH ×4 (07:45→21:18)
[2023-04-28] MEDS: ALBUTEROL SO4 0.083% IH SOL 2.5 MG/3 ML VIAL.NEB. NEB SCH ×4 (07:45→21:19)
[2023-04-28] MEDS: AMINO ACIDS/PROTEIN HYDROLYS 30 ML LIQUID.PKT NGT SCH ×2 (10:36→17:47)
[2023-04-28] MEDS: POLYETHYLENE GLYCOL (HEALTHYLAX) 3350 17 GM PACKET PO SCH ×2 (10:36→22:35)
[2023-04-28] MEDS: ENOXAPARIN NA (PORCINE) 60 MG/0.6 ML DISP.SYRIN SQ SCH ×2 (10:36→22:35)
[2023-04-28] MEDS: levETIRAcetam 500 MG/5 ML ORAL SOLUTION (UNIT-DOSE CUPS) PO SCH ×2 (10:37→22:35)
[2023-04-28] MEDS: POTASSIUM CHLORIDE ORAL LIQUID 20 MEQ/15 ML PO SCH (13:37)
[2023-04-28 16:20] LABS: POTASSIUM 3.9 mmol/L (3.5-5.1)
[2023-04-28 16:21] LABS: CALCIUM 8.6 mg/dL (8.5-10.1)
[2023-04-28 16:22] LABS: BLOOD UREA NITROGEN 11.7 mg/dL (7-18)
[2023-04-28 16:25] LABS: CREATININE 0.5 mg/dL (0.55-1.3)
[2023-04-28] MEDS: MELATONIN 5 MG TABLETS PO SCH (22:35)
[2023-04-29] MEDS: PIPERACILLIN/TAZOB 4.5 GM 4.5 GM in DEXTROSE 5%-WATER 100 ML IVPB SCH ×2 (01:19→10:00)
[2023-04-29] MEDS: ALBUTEROL SO4 0.083% IH SOL 2.5 MG/3 ML VIAL.NEB. NEB SCH ×4 (07:49→20:30)
[2023-04-29] MEDS: ACETYLCYSTEINE 20% 200MG/ML 4 ML VIAL *FOR ORAL / INH USE ONLY NEB SCH ×4 (07:49→20:30)
[2023-04-29] MEDS: AMINO ACIDS/PROTEIN HYDROLYS 30 ML LIQUID.PKT NGT SCH ×2 (09:01→17:16)
[2023-04-29] MEDS: POLYETHYLENE GLYCOL (HEALTHYLAX) 3350 17 GM PACKET PO SCH ×2 (10:00→21:07)
[2023-04-29] MEDS: levETIRAcetam 500 MG/5 ML ORAL SOLUTION (UNIT-DOSE CUPS) PO SCH ×2 (10:00→21:06)
[2023-04-29] MEDS: ENOXAPARIN NA (PORCINE) 60 MG/0.6 ML DISP.SYRIN SQ SCH ×2 (10:00→21:06)
[2023-04-29] MEDS: MELATONIN 5 MG TABLETS PO SCH (21:07)
[2023-04-30] MEDS: ALBUTEROL SO4 0.083% IH SOL 2.5 MG/3 ML VIAL.NEB. NEB SCH (08:13)
[2023-04-30] MEDS: ACETYLCYSTEINE 20% 200MG/ML 4 ML VIAL *FOR ORAL / INH USE ONLY NEB SCH (08:13)
[2023-04-30] MEDS: ENOXAPARIN NA (PORCINE) 60 MG/0.6 ML DISP.SYRIN SQ SCH ×2 (10:27→22:17)
[2023-04-30] MEDS: AMINO ACIDS/PROTEIN HYDROLYS 30 ML LIQUID.PKT NGT SCH ×2 (10:28→17:49)
[2023-04-30] MEDS: POLYETHYLENE GLYCOL (HEALTHYLAX) 3350 17 GM PACKET PO SCH ×2 (10:28→22:16)
[2023-04-30] MEDS: levETIRAcetam 500 MG/5 ML ORAL SOLUTION (UNIT-DOSE CUPS) PO SCH ×2 (10:28→22:16)
[2023-04-30] MEDS: MELATONIN 5 MG TABLETS PO SCH (22:16)
[2023-05-01 07:58] LABS: POTASSIUM 3.7 mmol/L (3.5-5.1)
[2023-05-01 08:01] LABS: BASO % 0.8 % (0-2.0); EOS % 2.5 % (0-4.5); HEMATOCRIT 32.4 % (35.4-49); HEMOGLOBIN 10.8 GM/dL (11.7-16.9); LYMPH % 22.5 % (8-40); MCH 29.1 pg (25.7-33.7); MCHC 33.3 g/dl (32.0-35.9); MEAN CELL VOLUME 87.3 fl (80-96); MEAN PLT VOLUME 7.6 fl (7.5-11.1); MONO % 14.6 % (3.8-10.2); NEUT % 59.6 % (42.8-82.8); PLATELET COUNT 544 10^3/uL (134-434); RBC 3.71 M/mm3 (4.00-5.60); RDW 16.1 % (11.9-15.9); WHITE BLOOD COUNT 6.1 K/mm3 (4.0-10.0)
[2023-05-01 08:04] LABS: BLOOD UREA NITROGEN 10.1 mg/dL (7-18)
[2023-05-01 08:08] LABS: CREATININE 0.5 mg/dL (0.55-1.3)
[2023-05-01] MEDS: levETIRAcetam 500 MG/5 ML ORAL SOLUTION (UNIT-DOSE CUPS) PO SCH ×2 (10:47→23:31)
[2023-05-01] MEDS: AMINO ACIDS/PROTEIN HYDROLYS 30 ML LIQUID.PKT NGT SCH ×2 (10:47→17:30)
[2023-05-01] MEDS: POLYETHYLENE GLYCOL (HEALTHYLAX) 3350 17 GM PACKET PO SCH ×2 (10:47→23:31)
[2023-05-01] MEDS: ENOXAPARIN NA (PORCINE) 60 MG/0.6 ML DISP.SYRIN SQ SCH ×2 (10:48→23:26)
[2023-05-01] MEDS ORDERED: levETIRAcetam 500 MG/5 ML INJECTION VIAL IVPB ONE (22:40)
[2023-05-01] MEDS: MELATONIN 5 MG TABLETS PO SCH (23:31)
[2023-05-02 07:03] LABS: POTASSIUM 3.4 mmol/L (3.5-5.1)
[2023-05-02 07:05] LABS: CALCIUM 8.8 mg/dL (8.5-10.1)
[2023-05-02 07:09] LABS: CREATININE 0.5 mg/dL (0.55-1.3)
[2023-05-02] MEDS: AMINO ACIDS/PROTEIN HYDROLYS 30 ML LIQUID.PKT NGT SCH ×2 (08:55→17:40)
[2023-05-02] MEDS: ENOXAPARIN NA (PORCINE) 60 MG/0.6 ML DISP.SYRIN SQ SCH ×2 (09:40→22:56)
[2023-05-02] MEDS: POLYETHYLENE GLYCOL (HEALTHYLAX) 3350 17 GM PACKET PO SCH ×2 (09:41→22:56)
[2023-05-02] MEDS: levETIRAcetam 500 MG/5 ML ORAL SOLUTION (UNIT-DOSE CUPS) PO SCH ×2 (09:41→22:56)
[2023-05-02] MEDS ORDERED: POTASSIUM CHLORIDE ORAL LIQUID 20 MEQ/15 ML PO ONE (10:45)
[2023-05-02] MEDS ORDERED: ACETAMINOPHEN 1000 MG/100 ML BAG IVPB PRN (17:37)
[2023-05-02] MEDS: POTASSIUM CHLORIDE 10 MEQ in SODIUM CHLORIDE 0.45% 1,000 ML IVPB SCH (22:47)
[2023-05-02] MEDS: MELATONIN 5 MG TABLETS PO SCH (22:56)
[2023-05-03] MEDS: POTASSIUM CHLORIDE 10 MEQ in SODIUM CHLORIDE 0.45% 1,000 ML IVPB SCH ×3 (06:04→16:50)
[2023-05-03] MEDS: AMINO ACIDS/PROTEIN HYDROLYS 30 ML LIQUID.PKT NGT SCH ×2 (09:05→16:34)
[2023-05-03] MEDS: levETIRAcetam 500 MG/5 ML ORAL SOLUTION (UNIT-DOSE CUPS) PO SCH ×2 (09:37→21:32)
[2023-05-03] MEDS: POLYETHYLENE GLYCOL (HEALTHYLAX) 3350 17 GM PACKET PO SCH ×2 (09:37→21:34)
[2023-05-03] MEDS ORDERED: MULTIVITAMINS (DAILY MVI) TABLET (FP) PO SCH (10:00)
[2023-05-03] MEDS ORDERED: ASCORBIC ACID 500 MG TABLET (FP) PO SCH (10:00)
[2023-05-03 11:17] LABS: BASO % 0.8 % (0-2.0); EOS % 2.2 % (0-4.5); HEMATOCRIT 31.4 % (35.4-49); HEMOGLOBIN 10.1 GM/dL (11.7-16.9); LYMPH % 22.1 % (8-40); MCH 28.3 pg (25.7-33.7); MCHC 32.1 g/dl (32.0-35.9); MEAN PLT VOLUME 7.6 fl (7.5-11.1); MONO % 17.4 % (3.8-10.2); NEUT % 57.5 % (42.8-82.8); PLATELET COUNT 492 10^3/uL (134-434); RBC 3.57 M/mm3 (4.00-5.60); RDW 16.5 % (11.9-15.9); WHITE BLOOD COUNT 5.2 K/mm3 (4.0-10.0)
[2023-05-03 11:56] LABS: POTASSIUM 4.1 mmol/L (3.5-5.1)
[2023-05-03 11:58] LABS: BLOOD UREA NITROGEN 16.3 mg/dL (7-18); CALCIUM 8.6 mg/dL (8.5-10.1)
[2023-05-03 12:01] LABS: CREATININE 0.5 mg/dL (0.55-1.3)
[2023-05-03] MEDS: ALBUTEROL SO4 2.5/IPRATROPIUM 0.5 INH SOL 3 ML VIAL.NEB. NEB SCH ×3 (12:30→20:20)
[2023-05-03] MEDS: MELATONIN 5 MG TABLETS PO SCH (21:34)
[2023-05-04] MEDS: POTASSIUM CHLORIDE 10 MEQ in SODIUM CHLORIDE 0.45% 1,000 ML IVPB SCH ×2 (01:40→06:29)
[2023-05-04] MEDS: ALBUTEROL SO4 2.5/IPRATROPIUM 0.5 INH SOL 3 ML VIAL.NEB. NEB SCH ×4 (08:05→20:16)
[2023-05-04] MEDS: AMINO ACIDS/PROTEIN HYDROLYS 30 ML LIQUID.PKT NGT SCH (09:52)
[2023-05-05 00:18] VITALS: BP 142/71; PULSE 72; RESP 16; TEMP 98.6
== END 2023-05-05 03:45 | DRG 720 ==
LOC: JER 13:09 → JERBED 18:26 → J4S 04-17 18:38
PROVIDERS: ADMIT Internal Medicine; ATTEND Family Medicine
DX: A41.9 Sepsis, unspecified organism (principal); E43 Unspecified severe protein-calorie malnutrition; J69.0 Pneumonitis due to inhalation of food and vomit; J90 Pleural effusion, not elsewhere classified; J96.00 Acute respiratory failure, unspecified whether with hypoxia or hypercapnia; N17.9 Acute kidney failure, unspecified; R53.2 Functional quadriplegia; E87.0 Hyperosmolality and hypernatremia; I48.91 Unspecified atrial fibrillation; T17.500A Unspecified foreign body in bronchus causing asphyxiation, initial encounter; E86.0 Dehydration; G81.91 Hemiplegia, unspecified affecting right dominant side; N13.30 Unspecified hydronephrosis; E87.6 Hypokalemia; F03.90 Unspecified dementia, unspecified severity, without behavioral disturbance, psychotic disturbance, mood disturbance, and anxiety; G40.909 Epilepsy, unspecified, not intractable, without status epilepticus; X58.XXXA Exposure to other specified factors, initial encounter; Y93.9 Activity, unspecified; Y99.9 Unspecified external cause status; Y92.9 Unspecified place or not applicable; I10 Essential (primary) hypertension; I73.9 Peripheral vascular disease, unspecified; J45.909 Unspecified asthma, uncomplicated; J98.11 Atelectasis; N39.0 Urinary tract infection, site not specified; T17.998A Other foreign object in respiratory tract, part unspecified causing other injury, initial encounter; R31.9 Hematuria, unspecified; Z68.22 Body mass index [BMI] 22.0-22.9, adult; R62.7 Adult failure to thrive; R64 Cachexia
CPT/HCPCS: 0241U-QW; 36415; 70450-TC; 71045-TC-FY; 71250-TC; 74176-TC; 76775-TC; 76856-TC; 80048; 80053; 80177; 81003; 82550; 82803; 82962; 83605; 83735; 84100; 84439; 84443; 84484; 85025; 85610; 85730; 87040; 87077; 87081; 87086; 87186; 93005; 93010; 94640; 94667; 99285-25